=== PATIENT | female | born 1940 | race Caucasian/White ===

== ENCOUNTER 2019-12-12 16:07 | Inpatient (IN) | payer OTHER, MEDICARE ==
--- NOTE | 2019-12-12 16:22 | PDOC ---
Rapid Medical Evaluation Time Seen by Provider: 12/12/19 16:18 Medical Evaluation: Allergies Allergy/AdvReac Type Severity Reaction Status Date / Time No Known Allergies Allergy Verified 12/15/13 11:17 12/12/19 16:18 79 year old female pmhx HTN Complaining of urinary symptoms and hematuria and lower abdominal pain, no nausea vomiting fever chills CTA RRR Abdomen non ttp -CVAT Plan Labs UA UC Pt to precede to ED for further management and care
--- NOTE | 2019-12-12 17:30 | PDOC ---
History of Present Illness - General Chief Complaint: Hematuria Stated Complaint: UTI Time Seen by Provider: 12/12/19 16:18 - History of Present Illness Initial Comments: 12/12/19 17:25 79 yo female with pmh of HTN presents to ED with hematuria for past three days. Pt explains she has had similar sxs last month where she had sharp RUQ pain with associated hematuria the lasted about a day. Pt explains she called her PCP Dr. Gallagher who scheduled an appt with her on November 30 where she ordered a lab and and urine for her which was done on December 08. The next day she started experiencing severe bleeding and burning with urination with associated sharp RUQ pain. Pt explains that when she urinates there is heavy blood in the b eginning and then urine towards the end is dark and sxs have been getting worse. Pt denies any fevers, chills, SOB, chest pain, urinary frequency, current abdominal pain, change in bowel movements or any LOC. Pt does have an associated sxs of generalized weakness. PMH: HTN Med: Aspirin, Valsartan, Omeprazle, carvedilol PSx: denies Allergies: Denies Social: denies smoking drugs or alcohol PCP: Dr. Gallagher Past History - Medical History Allergies/Adverse Reactions: Allergies Allergy/AdvReac Type Severity Reaction Status Date / Time No Known Allergies Allergy Verified 12/12/19 19:00 Home Medications: Ambulatory Orders Amlodipine Besylate [Norvasc -] 10 mg PO DAILY 12/12/19 Aspirin [ASA -] 81 mg PO DAILY 12/12/19 Ibandronate Sodium [Boniva] 150 mg PO DAILY 12/12/19 Multivit-Min/Iron/Folic/Lutein [Centrum Silver Women Tablet] 1 each PO DAILY 12/12/19 Omeprazole 40 mg PO DAILY 12/12/19 Valsartan [Diovan] 160 mg PO DAILY 12/12/19 Anemia: No Asthma: No Cancer: No Cardiac Disorders: No CVA: No COPD: No CHF: No Dementia: No Diabetes: No GI Disorders: No Disorders: No HTN: Yes Hypercholesterolemia: No Liver Disease: No Seizures: No Thyroid Disease: No - Psycho-Social/Smoking History Smoking History: Never smoked - Substance Abuse Hx (Audit-C & DAST Scrn) How often the patient has a drink containing alcohol: Never Score: In Men: 4 or > Positive; In Women: 3 or > Positive: 0 Screen Result (Pos requires Nsg. Audit-10AR): Negative Review of Systems - Review of Systems Comments:: 12/12/19 17:30 GENERAL/CONSTITUTIONAL: No fever or chills. No weakness. HEAD, EYES, EARS, NOSE AND THROAT: No change in vision. No ear pain or discharge. No sore throat. CARDIOVASCULAR: No chest pain or shortness of breath RESPIRATORY: No cough, wheezing, or hemoptysis. GASTROINTESTINAL: No nausea, vomiting, diarrhea or constipation. GENITOURINARY: Hematuria and dysuria. No urinary frequency MUSCULOSKELETAL: No joint or muscle swelling or pain. No neck or back pain. SKIN: No rash NEUROLOGIC: No headache, vertigo, loss of consciousness, or change in strength /sensation. ENDOCRINE: No increased thirst. No abnormal weight change. ALLERGIC/IMMUNOLOGIC: No hives or skin allergy. *Physical Exam - Vital Signs Last Vital Signs Temp Pulse Resp BP Pulse Ox 98.1 F 84 20 145/79 97 12/12/19 16:18 12/12/19 16:18 12/12/19 16:18 12/12/19 16:18 12/12/19 16:18 - Physical Exam 12/12/19 17:31 GENERAL: Awake, alert, and fully oriented, in no acute distress HEAD: No signs of trauma, normocephalic, atraumatic EYES: PERRLA, EOMI, sclera anicteric, conjunctiva clear ENT: Auricles normal inspection, hearing grossly normal, nares patent, oropharynx clear without exudates. Moist mucosa NECK: Normal ROM, supple, no lymphadenopathy, JVD, or masses LUNGS: No distress, speaks full sentences, clear to auscultation bilaterally HEART: Regular rate and rhythm, normal S1 and S2, no murmurs, rubs or gallops, peripheral pulses normal and equal bilaterally. ABDOMEN: Soft, nontender, normoactive bowel sounds. No guarding, no rebound. No masses EXTREMITIES : Normal inspection, Normal range of motion, no edema. No clubbing or cyanosis. NEUROLOGICAL: Cranial nerves II through XII grossly intact. Normal speech, normal gait, no focal sensorimotor deficits SKIN: Warm, Dry, normal turgor, no rashes or lesions noted ED Treatment Course - LABORATORY CBC & Chemistry Diagram: 12/13/19 06:35 12/13/19 06:35 Medical Decision Making - Medical Decision Making 12/12/19 17:32 Ddx: - UTI - Cholelithiasis - Nephrolithisis 79 yo female presenting to ED with hematuria for past three days. Will assess for: - UTI: UA and Urine culture - Anemia: CBC - Kidney pathology: CMP -Gallbladder pathology: CMP 12/12/19 17:49 Urine looked tea color so decided to add on CPK to rule out rhabdo 12/12/19 18:01 Pt has elevated T. Bilirubin and alk phos showing possible obstruction or mass will Admit and get RUQ ultrasound possible CT scan of abd 12/13/19 08:32 At 7pm pt was signed out to night team Discharge - Discharge Information Problems reviewed: Yes Clinical Impression/Diagnosis: Total bilirubin, elevated Condition: Guarded - Admission Yes - Follow up/Referral - Patient Discharge Instructions - Post Discharge Activity
[2019-12-12 17:34] LABS: BASO % 1.6 % (0-2.0); EOS % 0.7 % (0-4.5); HEMATOCRIT 35.5 % (32.4-45.2); HEMOGLOBIN 11.7 GM/dL (10.7-15.3); LYMPH % 22.8 % (8-40); MCH 31.2 pg (25.7-33.7); MEAN CELL VOLUME 94.6 fl (80-96); MEAN PLT VOLUME 10.8 fl (7.5-11.1); MONO % 9.2 % (3.8-10.2); NEUT % 65.7 % (42.8-82.8); PLATELET COUNT 237 K/MM3 (134-434); RBC 3.75 M/mm3 (3.60-5.2); RDW 14.9 % (11.6-15.6); WHITE BLOOD COUNT 6.6 K/mm3 (4.0-10.0)
--- NOTE | 2019-12-12 17:52 | PDOC ---
Documentation entered by Nick Brenner SCRIBE, acting as scribe for Franco Pacheco MD. Franco Pacheco MD: This documentation has been prepared by the Elidia ramirez Nirvannie, SCRIBE, under my direction and personally reviewed by me in its entirety. I confirm that the documentation accurately reflects all work, treatment, procedures, and medical decision making performed by me. Attending Attestation - Resident Resident Name: Dwight Swenson - ED Attending Attestation I have performed the following: I have examined & evaluated the patient, The case was reviewed & discussed with the resident, I agree w/resident's findings & plan, Exceptions are as noted - HPI HPI: 12/12/19 17:29 The patient is a 79 year old female with a significant past medical history of HTN who presents to the ED with 3 days of persistent dysuria with associated dysuria, and generalized weakness. She describes her hematuria as occurring in the beginning of her stream primarily. She notes 2 days ago she had an episode of severe, intermittent right upper quadrant abdominal pain that self- resolved. As per patient, she experienced similar symptoms a month ago with associated concentrated "dark" urine. Pt was evaluated by her PCP Dr. Gallagher 4 days ago (11/30) at which time she was sent for urine and blood work (results pending). While in the ER she notes 2 days of dark urine, dysuria, and generalized weakness. She denies any urinary frequency, vaginal discharge, fevers, or chills. She denies any recent antibiotic usage. Allergies: NKDA Primary Care Physician: Dr. Gallagher - Physicial Exam PE: 12/12/19 18:04 See resident exam - Medical Decision Making 12/12/19 18:07 79 F with dark urine, RUQ pain. Possible biliary obstruction. Also consider sydni turia/UTI. - labs - UA, UCx Labs with elevated Tbili Will obtain RUQ sono and CT GI consult Discharge - Discharge Information Problems reviewed: Yes Clinical Impression/Diagnosis: Total bilirubin, elevated, Choledocholithiasis Abdominal pain Qualifiers: Abdominal location: right upper quadrant Qualified Code(s): R10.11 - Right upper quadrant pain Condition: Guarded - Follow up/Referral - Patient Discharge Instructions - Post Discharge Activity
[2019-12-12 17:56] LABS: ALBUMIN 3.1 g/dl (3.4-5.0); BILIRUBIN,TOTAL 5.6 mg/dL (0.2-1); BLOOD UREA NITROGEN 15.2 mg/dL (7-18); CALCIUM 9.1 mg/dL (8.5-10.1); CREATININE 0.8 mg/dL (0.55-1.3); POTASSIUM 3.6 mmol/L (3.5-5.1); TOT PROT 6.6 g/dl (6.4-8.2)
[2019-12-12 18:11] LABS: EPI CELLS 35 /uL (0-25.1); HYALINE CASTS 23 /uL (0-3.1); URINE APPEARANCE CLOUDY; URINE BILIRUBIN 3+ (NEGATIVE); URINE COLOR DK YELLOW; URINE GLUCOSE (UA) NEGATIVE (NEGATIVE); URINE KETONE TRACE (NEGATIVE); URINE LEUK ESTERASE 1+ (NEGATIVE); URINE NITRITE POSITIVE (NEGATIVE); URINE PROTEIN 2+ (NEGATIVE); URINE RBC 12 /uL (0-23.9); URINE WBC 102 /uL (0-25.8)
[2019-12-12] MEDS ORDERED: CEPHALEXIN MONOHYDRATE 500 MG CAPSULE (UD) PO ONE ×2 (18:50→21:15)
--- NOTE | 2019-12-12 19:54 | PDOC ---
*Physical Exam - Vital Signs Last Vital Signs Temp Pulse Resp BP Pulse Ox 98.1 F 84 20 145/79 97 12/12/19 16:18 12/12/19 16:18 12/12/19 16:18 12/12/19 16:18 12/12/19 16:18 ED Treatment Course - LABORATORY CBC & Chemistry Diagram: 12/15/19 18:00 12/15/19 07:41 - ADDITIONAL ORDERS Additional order review: Laboratory Results 12/12/19 12/12/19 17:30 17:20 Sodium 143 Potassium 3.6 Chloride 111 H Carbon Dioxide 25 Anion Gap 7 L BUN 15.2 Creatinine 0.8 Est GFR (CKD-EPI)AfAm 82.42 Est GFR (CKD-EPI)NonAf 71.11 Random Glucose 102 Calcium 9.1 Total Bilirubin 5.6 H AST 73 H ALT 130 H Alkaline Phosphatase 345 H Creatine Kinase 47 Total Protein 6.6 Albumin 3.1 L Beta HCG, Quant 3.2 Urine Color Dk yellow Urine Appearance Cloudy Urine pH 5.0 Ur Specific [place] 1.030 Urine Protein 2+ H Urine Glucose (UA) Negative Urine Ketones Trace H Urine Blood Trace Urine Nitrite Positive H Urine Bilirubin 3+ H Urine Urobilinogen 1.0 Ur Leukocyte Esterase 1+ H Urine WBC (Auto) 102 Urine RBC (Auto) 12 Urine Casts (Auto) 23 U Epithel Cells (Auto) 35 Urine Bacteria (Auto) 5000.00 12/12/19 17:20 RBC 3.75 MCV 94.6 MCHC 33.0 RDW 14.9 MPV 10.8 Neutrophils % 65.7 Lymphocytes % 22.8 Monocytes % 9.2 Eosinophils % 0.7 Basophils % 1.6 Medical Decision Making - Medical Decision Making 12/12/19 20:09 Sign-out received from Dr. Swenson. In short, 79yo F with dark urine, RUQ abdominal pain intermittently Elevated LFTs Bili 5.6, AST/ ALT 73/130 Hemodynamically stable +UTI, given keflex in the ED Tentative Dispo: Admit Med/Surg, patient will likely require MRCP for suspected biliary pathology 12/12/19 20:14 RUQ US with dilated CBD with choledocholithiasis, recommend MRCP Gallbladder sludge with thickened wall, trace pericholecystic fluid CTAP with same findings and fatty liver infiltrates, left adrenal nodule (CT follow-up recommended) 12/12/19 20:[address] [facility] at Midnight for MRCP Antoine Mayberry Dispo: Admit Endorsed to Hospitalist team Discharge - Discharge Information Problems reviewed: Yes Clinical Impression/Diagnosis: Total bilirubin, elevated, Choledocholithiasis Abdominal pain Qualifiers: Abdominal location: right upper quadrant Qualified Code(s): R10.11 - Right upper quadrant pain Condition: Guarded - Follow up/Referral - Patient Discharge Instructions - Post Discharge Activity
[2019-12-12] MEDS ORDERED: CEPHALEXIN MONOHYDRATE 500 MG CAPSULE (UD) ONE (20:50)
--- NOTE | 2019-12-12 21:42 | HP ---
Admitting History and Physical - Primary Care Physician PCP: Alessia Gallagher - Admission Chief Complaint: RUQ Pain, hematuria, Dysuria History of Present Illness: This is a 79 y/o female with a PMhx of HTN. Who presents to the ED with RUQ pain, hematuria and dysuria x 3 days. Patient reports having similar symptoms last month, sharp RUQ pain with associated "orange brown~ hematuria x 1 day. Patient reports calling her PCP, who scheduled an appt with her on November 30 ordering blood and urine tests for her which was done on December 08. Patient reports the next day, she started having bloody urination, burning with associated sharp RUQ pain. She reports that the RUQ pain, hematuria and dysuria has been getting progressively worse. Patient denies having fever, chills, SOB, dizziness, ESPANA, CP, palpitations, N/V/D, constipation, hematochezia. Patient den ies recent sick contacts or travel. History Source: Patient Limitations to Obtaining History: No Limitations - Past Medical History Cardiovascular: Yes: HTN - Past Surgical History Past Surgical History: Yes: None - Smoking History Smoking history: Never smoked - Alcohol/Substance Use Hx Alcohol Use: No History of Substance Use: reports: None - Social History Usual Living Arrangement: Yes: Alone ADL: Independent History of Recent Travel: No Home Medications - Allergies Allergies/Adverse Reactions: Allergies Allergy/AdvReac Type Severity Reaction Status Date / Time No Known Allergies Allergy Verified 12/12/19 19:00 - Home Medications Home Medications: Ambulatory Orders Amlodipine Besylate [Norvasc -] 10 mg PO DAILY 12/12/19 Aspirin [ASA -] 81 mg PO HS 12/12/19 Ibandronate Sodium [Boniva] 150 mg PO MONTHLY 12/12/19 Multivit-Min/Iron/Folic/Lutein [Centrum Silver Women Tablet] 1 each PO DAILY 12/12/19 Omeprazole 40 mg PO DAILY PRN 12/12/19 Valsartan [Diovan] 160 mg PO DAILY 12/12/19 Family Medical History Family Hx Coronary Artery Disease: Mother () Review of Systems - Review of Systems Constitutional: reports: Weakness Eyes: reports: No Symptoms HENT: reports: No Symptoms Neck: reports: No Symptoms Cardiovascular: reports: No Symptoms Respiratory: reports: No Symptoms Gastrointestinal: reports: Abdominal Pain Genitourinary: reports: Burning, Dysuria, Hematuria Breasts: reports: No Symptoms Reported Musculoskeletal: reports: No Symptoms Integumentary: reports: No Symptoms Neurological: reports: Weakness Endocrine: reports: No Symptoms Hematology/Lymphatic: reports: No Symptoms Psychiatric: reports: No Symptoms Pain Intensity: 4 Physical Examination Vital Signs: Vital Signs Temperature 98.1 F 12/12/19 16:18 Pulse Rate 84 12/12/19 16:18 Respiratory Rate 20 12/12/19 16:18 Blood Pressure 145/79 12/12/19 16:18 O2 Sat by Pulse Oximetry (%) 97 12/12/19 16:18 Constitutional: Yes: No Distress, Calm, Thin Eyes: Yes: Conjunctiva Clear, EOM Intact, PERRL, Sclera Icterus HENT: Yes: WNL, Atraumatic, Normocephalic Neck: Yes: WNL, Supple, Trachea Midline Cardiovascular: Yes: WNL, Regular Rate and Rhythm, S1, S2 Respiratory: Yes: WNL, Regular, CTA Bilaterally Gastrointestinal: Yes: Soft, Hyperactive Bowel Sounds, Tenderness (RUQ) ...Rectal Exam: Yes: Deferred Breast(s): Yes: WNL Musculoskeletal: Yes: WNL Extremities: Yes: WNL Edema: No Peripheral Pulses WNL: Yes Integumentary: Yes: Jaundice Neurological: Yes: WNL, Alert, Oriented, Cran Nerves II-XII Intact ...Motor Strength: WNL Psychiatric: Yes: WNL, Alert, Oriented Labs: CBC, BMP 12/12/19 17:20 12/12/19 17:20 Laboratory Results - last 24 hr 12/12/19 12/12/19 12/12/19 17:20 17:20 17:30 WBC 6.6 RBC 3.75 Hgb 11.7 Hct 35.5 MCV 94.6 MCH 31.2 MCHC 33.0 RDW 14.9 Plt Count 237 MPV 10.8 Absolute Neuts (auto) 4.3 Neutrophils % 65.7 Lymphocytes % 22.8 Monocytes % 9.2 Eosinophils % 0.7 Basophils % 1.6 Nucleated RBC % 0 Sodium 143 Potassium 3.6 Chloride 111 H Carbon Dioxide 25 Anion Gap 7 L BUN 15.2 Creatinine 0.8 Est GFR (CKD-EPI)AfAm 82.42 Est GFR (CKD-EPI)NonAf 71.11 Random Glucose 102 Calcium 9.1 Total Bilirubin 5.6 H AST 73 H ALT 130 H Alkaline Phosphatase 345 H Creatine Kinase 47 Total Protein 6.6 Albumin 3.1 L Beta HCG, Quant 3.2 Urine Color Dk yellow Urine Appearance Cloudy Urine pH 5.0 Ur Specific [place] 1.030 Urine Protein 2+ H Urine Glucose (UA) Negative Urine Ketones Trace H Urine Blood Trace Urine Nitrite Positive H Urine Bilirubin 3+ H Urine Urobilinogen 1.0 Ur Leukocyte Esterase 1+ H Urine WBC (Auto) 102 Urine RBC (Auto) 12 Urine Casts (Auto) 23 U Epithel Cells (Auto) 35 Urine Bacteria (Auto) 5000.00 Intake & Output 12/09/19 12/10/19 12/11/19 12/12/19 23:59 23:59 23:59 23:59 Weight 63.049 kg Imaging - Results Cat Scan: Report Reviewed, Image Reviewed Ultrasound: Image Reviewed EKG: Image Reviewed Problem List - Problems (1) Choledocholithiasis Assessment/Plan: CTAP- reviewed US- reviewed T Bili 5.6 Transaminitis- 73/130/345 Appreciate GI consult for ERCP- per ED resident Dr St aware Consider Surgical Consult Continue Levofloxacin, Metronidazole NPO Gentle IVF Monitor CBC, CMP in am Ofirmev- pain control Monitor vitals Code(s): K80.50 - CALCULUS OF BILE DUCT W/O CHOLANGITIS OR CHOLECYST W/O OBST (2) Abdominal pain Assessment/Plan: See above Code(s): R10.9 - UNSPECIFIED ABDOMINAL PAIN Qualifiers: Abdominal location: right upper quadrant Qualified Code(s): R10.11 - Right upper quadrant pain (3) UTI (urinary tract infection) Assessment/Plan: UA: +2 protein, trace ketones, +nitrate, +3 bilirubin, +1 leukocyte esterase, 102 WBC, 5000 bacteria Urine Culture-pending Continue Levofloxacin Monitor CBC Monitor vitals Ofirmev- pain control Code(s): N39.0 - URINARY TRACT INFECTION, SITE NOT SPECIFIED (4) Hematuria Assessment/Plan: Likely due to UTI Continue to monitor closely Monitor vitals Code(s): R31.9 - HEMATURIA, UNSPECIFIED (5) Transaminitis Assessment/Plan: Likely secondary to biliary obstruction Hepatitis Panel- am Monitor CMP GI consulted Code(s): R74.0 - NONSPEC ELEV OF LEVELS OF TRANSAMNS & LACTIC ACID DEHYDRGNSE (6) Total bilirubin, elevated Assessment/Plan: Likely secondary to biliary obstruction vs hepatitis vs malignancy CTAP- reviewed Adominal US-reviewed GI following Monitor CBC, CMP Hepatitis Panel Code(s): R17 - UNSPECIFIED JAUNDICE (7) HTN (hypertension) Assessment/Plan: stable Monitor BP Hold home meds for now Code(s): I10 - ESSENTIAL (PRIMARY) HYPERTENSION (8) Encounter for screening laboratory testing for COVID-19 virus 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 Admitted for Choledocholithiasis, Abdominal Pain, UTI, Transaminitis for further evaluation of their emergent condition. Plan: See Problem List FEN D50.45%NS@75ml/hr Replete lytes prn NPO DVT ppx OOB SCDs Heparin SQ Dispo: Requires Inpatient Care Visit type - Medication Review Med list reviewed for High Risk Meds patients 65 and older: Yes - Emergency Visit Emergency Visit: Yes ED Registration Date: 12/12/19 Care time: The patient presented to the Emergency Department on the above date and was hospitalized for further evaluation of their emergent condition. - New Patient This patient is new to me today: Yes Date on this admission: 12/12/19 - Critical Care Critical Care patient: No
[2019-12-13] MEDS: DEXTROSE 5%-0.45% SALINE 1,000 ML IV SCH ×2 (01:07→14:00)
[2019-12-13 07:17] LABS: BASO % 1.1 % (0-2.0); EOS % 2.1 % (0-4.5); HEMATOCRIT 33.4 % (32.4-45.2); LYMPH % 25.8 % (8-40); MCH 30.9 pg (25.7-33.7); MCHC 32.9 g/dl (32.0-36.0); MEAN CELL VOLUME 94.1 fl (80-96); MEAN PLT VOLUME 10.6 fl (7.5-11.1); MONO % 9.9 % (3.8-10.2); NEUT % 61.1 % (42.8-82.8); PLATELET COUNT 217 K/MM3 (134-434); RBC 3.55 M/mm3 (3.60-5.2); RDW 14.5 % (11.6-15.6); WHITE BLOOD COUNT 5.8 K/mm3 (4.0-10.0)
[2019-12-13 07:45] LABS: ALBUMIN 2.6 g/dl (3.4-5.0); BLOOD UREA NITROGEN 9.8 mg/dL (7-18); CALCIUM 8.5 mg/dL (8.5-10.1); CREATININE 0.6 mg/dL (0.55-1.3); POTASSIUM 3.8 mmol/L (3.5-5.1); TOT PROT 5.8 g/dl (6.4-8.2)
[2019-12-13 08:00] LABS: BILIRUBIN,TOTAL 3.5 mg/dL (0.2-1)
--- NOTE | 2019-12-13 09:10 | EKG ---
Test Reason : Blood Pressure : / mmHG Vent. Rate : 069 BPM Atrial Rate : 069 BPM P-R Int : 146 ms QRS Dur : 074 ms QT Int : 402 ms P-R-T Axes : 073 052 050 degrees QTc Int : 430 ms POOR DATA QUALITY, INTERPRETATION MAY BE ADVERSELY AFFECTED SINUS RHYTHM WITH PREMATURE SUPRAVENTRICULAR COMPLEXES ABNORMAL ECG NO PREVIOUS ECGS AVAILABLE Confirmed by Beatriz Martinez ([id number]) on 12/13/2019 9:09:26 AM Referred By: Confirmed By:Beatriz Martinez
--- NOTE | 2019-12-13 09:42 | CON.GI ---
Consult Consult Specialty:: GI Referred by:: Hospitalist Service Reason for Consultation:: Abdominal pain - History of Present Illness Chief Complaint: Abdominal pain History of Present Illness: 79F admitted for evaluation of abdominal pain. Patientdescribes mid/right sided abdominal pain last night, more prolonged when compared to a similar episode in October. Also noted darker urine and underwriter stool. Noted jaundiced with bilirubin 5.6, elevated Alkaline phosphatase and abdominal US that revealed mild biliary ductal dilatation and suspected choledocholithiasis. Believes that [facility] [place] [facility]. No family history of colorectal cancer or other GI malgnancy. - Past Medical History Cardio/Vascular: Yes: HTN - Past Surgical History Past Surgical History: Yes: None, Cataract Removal (left eye) Additional Surgical History: Denies - Alcohol/Substance Use Hx Alcohol Use: No History of Substance Use: reports: None - Smoking History Smoking history: Never smoked - Social History ADL: Independent Place of : Other ([place]) History of Recent Travel: No Home Medications - Allergies Allergies/Adverse Reactions: Allergies Allergy/AdvReac Type Severity Reaction Status Date / Time No Known Allergies Allergy Verified 12/12/19 19:00 - Home Medications Home Medications: Ambulatory Orders Amlodipine Besylate [Norvasc -] 10 mg PO DAILY 12/12/19 Aspirin [ASA -] 81 mg PO DAILY 12/12/19 Ibandronate Sodium [Boniva] 150 mg PO DAILY 12/12/19 Multivit-Min/Iron/Folic/Lutein [Centrum Silver Women Tablet] 1 each PO DAILY 12/12/19 Omeprazole 40 mg PO DAILY 12/12/19 Valsartan [Diovan] 160 mg PO DAILY 12/12/19 Family Medical History Other Family History: No family history of colorectal cancer or other GI malignancy Review of Systems - Review of Systems Constitutional: denies: Unintentional Wgt. Loss Cardiovascular: denies: Chest Pain Respiratory: denies: Cough Gastrointestinal: reports: Abdominal Pain, Nausea. denies: Vomiting Physical Exam-GI Vital Signs: Vital Signs Temperature 98.3 F 12/13/19 06:46 Pulse Rate 65 12/13/19 06:46 Respiratory Rate 17 12/13/19 06:46 Blood Pressure 115/63 12/13/19 06:46 O2 Sat by Pulse Oximetry (%) 97 12/13/19 06:46 Constitutional: Yes: Calm Eyes: Yes: Sclera Icterus Cardiovascular: Yes: Regular Rate and Rhythm. No: Murmur Respiratory: Yes: CTA Bilaterally Gastrointestinal Inspection: No: Distention, Scars ...Auscultate: Yes: Normoactive Bowel Sounds ...Palpate: Yes: Soft. No: Hepatomegaly, Splenomegaly, Tenderness ...Percussion: No: Tympanitic Edema: No (No LE edema) Neurological: Yes: Alert Labs: CBC, BMP 12/13/19 06:35 12/13/19 06:35 Hepatic Panel Total Bilirubin 3.5 mg/dL (0.2-1) H D 12/13/19 06:35 AST 62 U/L (15-37) H 12/13/19 06:35 ALT 114 U/L (13-61) H 12/13/19 06:35 Alkaline Phosphatase 300 U/L (45-117) H 12/13/19 06:35 Albumin 2.6 g/dl (3.4-5.0) L 12/13/19 06:35 Imaging - Results Cat Scan: Image Reviewed Ultrasound: Report Reviewed Problem List - Problems (1) Choledocholithiasis Assessment/Plan: Suspected symptomatic choledocholithiasis with Jaundice. by description, may have has an episode of biliary colic / passed stones as well in October Advise: NPO except meds IV Hydration Awaiting official reads of US and CT scan Continue Levaquin and Flagyl for now Ordered MRCP Discussed ERCP with Ms. Gil for further evaluation of biliary tract / stone extraction if necessary. Discussed potential risks of the procedure like but not limited to bleeding, perforation requiring surgery to repair, infection, sedation medication effects, pancreatitis (5-10% of the cases) all of which could be potentially life threatening. She has agreed with the procedure Held Heparin for now. Use alternate form of DVT prophylaxis, encourage ambulation. Plan for ERCP 12/13, sooner if clinical course dictates. Discussed case with biliary endoscopist Dr. Danica Mcclellan. Surgical consultation to discuss cholecystectomy once the above issues have been addressed. Awaiting COVID-19 testing results Monitor CBC/CMP. Type and screen ordered Code(s): K80.50 - CALCULUS OF BILE DUCT W/O CHOLANGITIS OR CHOLECYST W/O OBST
[2019-12-13] MEDS ORDERED: HEPARIN NA (PORCINE) 5,000 UNITS/ML 1ML VIAL SQ SCH (10:00)
[2019-12-13 10:10] VITALS: BMI 22.6
[2019-12-13 11:38] LABS: BILIRUBIN,DIRECT 2.8 mg/dL (0.0-0.2)
[2019-12-13 12:35] LABS: INR 1.07 (0.83-1.09); PROTHROMBIN TIME (PATIENT) 12.6 SEC (9.7-13.0)
--- NOTE | 2019-12-13 17:37 | PN ---
Physical Exam: SUBJECTIVE: Patient seen and examined at bedside with no acute events overnight. OBJECTIVE: Vital Signs Period Temp Pulse Resp BP Sys/White Pulse Ox Last 24 Hr 98.3 F-99.3 F 59-73 17-20 115-146/63-80 95-98 GENERAL: The patient is awake, alert, and fully oriented, in no acute distress. HEAD: Normal with no signs of trauma. LUNGS: Breath sounds equal, clear to auscultation bilaterally, no wheezes, no crackles, no accessory muscle use. HEART: Regular rate and rhythm, S1, S2 without murmur, rub or gallop. ABDOMEN: RUQ pain upon deep palpation EXTREMITIES: 2+ pulses, warm, well-perfused, no edema. SKIN: Warm, dry, normal turgor, no rashes or lesions noted Laboratory Results - last 24 hr 12/12/19 12/12/19 12/12/19 17:20 17:20 17:30 WBC 6.6 RBC 3.75 Hgb 11.7 Hct 35.5 MCV 94.6 MCH 31.2 MCHC 33.0 RDW 14.9 Plt Count 237 MPV 10.8 Absolute Neuts (auto) 4.3 Neutrophils % 65.7 Lymphocytes % 22.8 Monocytes % 9.2 Eosinophils % 0.7 Basophils % 1.6 Nucleated RBC % 0 PT with INR INR PTT (Actin FS) Sodium 143 Potassium 3.6 Chloride 111 H Carbon Dioxide 25 Anion Gap 7 L BUN 15.2 Creatinine 0.8 Est GFR (CKD-EPI)AfAm 82.42 Est GFR (CKD-EPI)NonAf 71.11 Random Glucose 102 Calcium 9.1 Iron TIBC Iron Saturation Unsaturated IBC Total Bilirubin 5.6 H Direct Bilirubin AST 73 H ALT 130 H Alkaline Phosphatase 345 H Creatine Kinase 47 Total Protein 6.6 Albumin 3.1 L Lipase 119 Beta HCG, Quant 3.2 Urine Color Dk yellow Urine Appearance Cloudy Urine pH 5.0 Ur Specific [place] 1.030 Urine Protein 2+ H Urine Glucose (UA) Negative Urine Ketones Trace H Urine Blood Trace Urine Nitrite Positive H Urine Bilirubin 3+ H Urine Urobilinogen 1.0 Ur Leukocyte Esterase 1+ H Urine WBC (Auto) 102 Urine RBC (Auto) 12 Urine Casts (Auto) 23 U Epithel Cells (Auto) 35 Urine Bacteria (Auto) 5000.00 Blood Type Antibody Screen 0712/13/19 12/13/19 06:35 06:35 11:28 WBC 5.8 RBC 3.55 L Hgb 11.0 Hct 33.4 MCV 94.1 MCH 30.9 MCHC 32.9 RDW 14.5 Plt Count 217 MPV 10.6 Absolute Neuts (auto) 3.6 Neutrophils % 61.1 Lymphocytes % 25.8 Monocytes % 9.9 Eosinophils % 2.1 D Basophils % 1.1 Nucleated RBC % 0 PT with INR INR PTT (Actin FS) Sodium 140 Potassium 3.8 Chloride 108 H Carbon Dioxide 26 Anion Gap 7 L BUN 9.8 Creatinine 0.6 Est GFR (CKD-EPI)AfAm 101.90 Est GFR (CKD-EPI)NonAf 87.92 Random Glucose 106 Calcium 8.5 Iron 169 TIBC 267 Iron Saturation 63 H Unsaturated IBC 98 L Total Bilirubin 3.5 H D Direct Bilirubin 2.8 H AST 62 H ALT 114 H Alkaline Phosphatase 300 H Creatine Kinase Total Protein 5.8 L Albumin 2.6 L Lipase Beta HCG, Quant Urine Color Urine Appearance Urine pH Ur Specific [place] Urine Protein Urine Glucose (UA) Urine Ketones Urine Blood Urine Nitrite Urine Bilirubin Urine Urobilinogen Ur Leukocyte Esterase Urine WBC (Auto) Urine RBC (Auto) Urine Casts (Auto) U Epithel Cells (Auto) Urine Bacteria (Auto) Blood Type A POSITIVE Antibody Screen Negative 12/13/19 11:28 WBC RBC Hgb Hct MCV MCH MCHC RDW Plt Count MPV Absolute Neuts (auto) Neutrophils % Lymphocytes % Monocytes % Eosinophils % Basophils % Nucleated RBC % PT with INR 12.60 INR 1.07 PTT (Actin FS) 32.0 Sodium Potassium Chloride Carbon Dioxide Anion Gap BUN Creatinine Est GFR (CKD-EPI)AfAm Est GFR (CKD-EPI)NonAf Random Glucose Calcium Iron TIBC Iron Saturation Unsaturated IBC Total Bilirubin Direct Bilirubin AST ALT Alkaline Phosphatase Creatine Kinase Total Protein Albumin Lipase Beta HCG, Quant Urine Color Urine Appearance Urine pH Ur Specific [place] Urine Protein Urine Glucose (UA) Urine Ketones Urine Blood Urine Nitrite Urine Bilirubin Urine Urobilinogen Ur Leukocyte Esterase Urine WBC (Auto) Urine RBC (Auto) Urine Casts (Auto) U Epithel Cells (Auto) Urine Bacteria (Auto) Blood Type Antibody Screen Active Medications Generic Name Dose Route Start Last Admin Trade Name Freq PRN Reason Stop Dose Admin Heparin Sodium (Porcine) 5,000 unit 12/13/19 10:00 Heparin - SQ BID ELVIS Dextrose/Sodium Chloride 1,000 mls @ 75 mls/hr 12/13/19 00:01 12/13/19 14:00 D5-1/2ns - IV 75 mls/hr ASDIR ELVIS Administration Levofloxacin 750 mg in 150 mls @ 100 mls/hr 12/13/19 22:00 Levaquin 750 Mg Premixed Ivpb - IVPB HS ELVIS Protocol Metronidazole 500 mg in 100 mls @ 100 mls/hr 12/13/19 06:00 12/13/19 17:22 Flagyl 500mg Premixed Ivpb - IVPB 100 mls/hr Q8H-IV ELVIS Administration ASSESSMENT/PLAN: Theresa is a 79F w a h/o HTN presents to the hospital with RUQ pain, orange-red hematuria with burning. The patient was worked up for acute cholecystitis and UTI. #Cholecystitis with concomittant Choledocolithiasis - MRCP to be preformed - Will monitor LFT, lyts, and ssx #UTI UA show +nitrite, trace blood, and +1 leukocyte esterase - pending cultures - Epithelial cells elevated - possible contamination ATTENDING PHYSICIAN STATEMENT I saw and evaluated the patient. I reviewed the resident's note and discussed the case with the resident. I agree with the resident's findings and plan as documented. SUBJECTIVE: OBJECTIVE: ASSESSMENT AND PLAN:
--- NOTE | 2019-12-13 17:59 | PN ---
Teaching Attending Note Name of Resident: oMy Marquez ATTENDING PHYSICIAN STATEMENT I saw and evaluated the patient. I reviewed the resident's note and discussed the case with the resident. I agree with the resident's findings and plan as documented. SUBJECTIVE: Feels okay, abdominal pain somewhat improved. No fever/chills/nausea/vomiting OBJECTIVE: Afebrile, Hemodynamically Stable. Last Vital Signs Temp Pulse Resp BP Pulse Ox 99.3 F 59 L 20 134/71 97 12/13/19 14:45 12/13/19 14:45 12/13/19 14:45 12/13/19 14:45 12/13/19 14:45 HEENT - Atraumatic, Normocephalic. Heart - S1, S2, RRR Lungs - clear to auscultation Abdomen - Soft, RUQ tenderness on deep palpation. Bowel Sounds normal. Extremities - no edema, no calf tenderness Neuro - AAO x 3. Tone/Power normal. Laboratory Results - last 24 hr 12/12/19 12/12/19 12/13/19 17:20 17:30 06:35 WBC 5.8 RBC 3.55 L Hgb 11.0 Hct 33.4 MCV 94.1 MCH 30.9 MCHC 32.9 RDW 14.5 Plt Count 217 MPV 10.6 Absolute Neuts (auto) 3.6 Neutrophils % 61.1 Lymphocytes % 25.8 Monocytes % 9.9 Eosinophils % 2.1 D Basophils % 1.1 Nucleated RBC % 0 PT with INR INR PTT (Actin FS) Sodium 143 Potassium 3.6 Chloride 111 H Carbon Dioxide 25 Anion Gap 7 L BUN 15.2 Creatinine 0.8 Est GFR (CKD-EPI)AfAm 82.42 Est GFR (CKD-EPI)NonAf 71.11 Random Glucose 102 Calcium 9.1 Iron TIBC Iron Saturation Unsaturated IBC Total Bilirubin 5.6 H Direct Bilirubin AST 73 H ALT 130 H Alkaline Phosphatase 345 H Creatine Kinase 47 Total Protein 6.6 Albumin 3.1 L Lipase 119 Beta HCG, Quant 3.2 Urine Color Dk yellow Urine Appearance Cloudy Urine pH 5.0 Ur Specific [place] 1.030 Urine Protein 2+ H Urine Glucose (UA) Negative Urine Ketones Trace H Urine Blood Trace Urine Nitrite Positive H Urine Bilirubin 3+ H Urine Urobilinogen 1.0 Ur Leukocyte Esterase 1+ H Urine WBC (Auto) 102 Urine RBC (Auto) 12 Urine Casts (Auto) 23 U Epithel Cells (Auto) 35 Urine Bacteria (Auto) 5000.00 Blood Type Antibody Screen 12/13/19 12/13/19 12/13/19 06:35 11:28 11:28 WBC RBC Hgb Hct MCV MCH MCHC RDW Plt Count MPV Absolute Neuts (auto) Neutrophils % Lymphocytes % Monocytes % Eosinophils % Basophils % Nucleated RBC % PT with INR 12.60 INR 1.07 PTT (Actin FS) 32.0 Sodium 140 Potassium 3.8 Chloride 108 H Carbon Dioxide 26 Anion Gap 7 L BUN 9.8 Creatinine 0.6 Est GFR (CKD-EPI)AfAm 101.90 Est GFR (CKD-EPI)NonAf 87.92 Random Glucose 106 Calcium 8.5 Iron 169 TIBC 267 Iron Saturation 63 H Unsaturated IBC 98 L Total Bilirubin 3.5 H D Direct Bilirubin 2.8 H AST 62 H ALT 114 H Alkaline Phosphatase 300 H Creatine Kinase Total Protein 5.8 L Albumin 2.6 L Lipase Beta HCG, Quant Urine Color Urine Appearance Urine pH Ur Specific [place] Urine Protein Urine Glucose (UA) Urine Ketones Urine Blood Urine Nitrite Urine Bilirubin Urine Urobilinogen Ur Leukocyte Esterase Urine WBC (Auto) Urine RBC (Auto) Urine Casts (Auto) U Epithel Cells (Auto) Urine Bacteria (Auto) Blood Type A POSITIVE Antibody Screen Negative Current Medications Generic Name Dose Route Start Last Admin Trade Name Freq PRN Reason Stop Dose Admin Heparin Sodium (Porcine) 5,000 unit 12/13/19 10:00 Heparin - SQ BID ELVIS Dextrose/Sodium Chloride 1,000 mls @ 75 mls/hr 12/13/19 00:01 12/13/19 14:00 D5-1/2ns - IV 75 mls/hr ASDIR ELVIS Administration Levofloxacin 750 mg in 150 mls @ 100 mls/hr 12/13/19 22:00 Levaquin 750 Mg Premixed Ivpb - IVPB HS ELVIS Protocol Metronidazole 500 mg in 100 mls @ 100 mls/hr 12/13/19 06:00 12/13/19 17:22 Flagyl 500mg Premixed Ivpb - IVPB 100 mls/hr Q8H-IV ELVIS Administration Home Medications Medication Instructions Recorded Amlodipine Besylate [Norvasc -] 10 mg PO DAILY 12/12/19 Aspirin [ASA -] 81 mg PO HS 12/12/19 Ibandronate Sodium [Boniva] 150 mg PO MONTHLY 12/12/19 Multivit-Min/Iron/Folic/Lutein 1 each PO DAILY 12/12/19 [Centrum Silver Women Tablet] Omeprazole 40 mg PO DAILY PRN 12/12/19 Valsartan [Diovan] 160 mg PO DAILY 12/12/19 ASSESSMENT/PLAN: 79 year old female with HTN, presents with RUQ abdominal pain, hematuria, dysuria x 3 days. 1. Acute Cholecystitis with Choledocholithiasis LFTs elevated Abdominal US - thickwalled GB with pericholecystic fluid/sludge/suspected choledocholithiasis (echogenic foci CBD) CT A/P - Dilated GB with wall thickening and pericholecystic fluid; dilatation biliary tree with choledocholithiasis Afebrile - no signs of acute cholangitis. MRCP ordered - may likely need ERCP GI consulted Surgery consulted. 2. UTI - on Levofloxacin Follow up Urine Culture. 3. HTN - normally on Norvasc and Valsartan, now held due to acute illness/borderline BP. DVT Px - Lovenox GI Px - Protonix.
[2019-12-13] MEDS: PANTOPRAZOLE SODIUM 40 MG VIAL IVPUSH SCH (18:26)
[2019-12-14] MEDS: DEXTROSE 5%-0.45% SALINE 1,000 ML IV SCH (02:22)
[2019-12-14 08:29] LABS: ALBUMIN 2.6 g/dl (3.4-5.0); BILIRUBIN,TOTAL 2.3 mg/dL (0.2-1); BLOOD UREA NITROGEN 8.5 mg/dL (7-18); CALCIUM 8.6 mg/dL (8.5-10.1); CREATININE 0.7 mg/dL (0.55-1.3); MAGNESIUM 1.8 mg/dL (1.8-2.4); PHOSPHOROUS 3.3 mg/dL (2.5-4.9); POTASSIUM 3.8 mmol/L (3.5-5.1)
--- NOTE | 2019-12-14 08:40 | PN ---
Progress Note (short form) - Note Progress Note: NEUROSURGERY CONSULT DICTATED Chart reviewed Pt examined MRI Abd reviewed History obtained c/ RUQ pain and dysuria/hematura. Reports having fallen and landed on her back and scratching up elbow 3 weeks ago. Had a "lump" in LB on L 3 weeks ago. Denies F/C, back pain. PE: AF, VSS General- mild RUQ tenderness CN- intact; Motor- 5/5 B UE/LE; Sensation- intact LT; DTR- 1+ Back- non tender Abd MRI- visceral findings noted; oval/linear 1 x 2.5 cm fluid collection along posterior lateral fascial border of paraspinal muscles, no surrounding edema Probable posttraumatic L paraspinal fascial hematoma No surgical intervention indicated unless increased symptoms or signs of localized infection Observe only
[2019-12-14] MEDS: PANTOPRAZOLE SODIUM 40 MG VIAL IVPUSH SCH (09:51)
[2019-12-14 10:09] LABS: BASO % 1.4 % (0-2.0); EOS % 1.3 % (0-4.5); HEMATOCRIT 35.2 % (32.4-45.2); HEMOGLOBIN 11.6 GM/dL (10.7-15.3); MCH 31.4 pg (25.7-33.7); MEAN CELL VOLUME 95.1 fl (80-96); MEAN PLT VOLUME 11.7 fl (7.5-11.1); MONO % 9.1 % (3.8-10.2); NEUT % 66.2 % (42.8-82.8); PLATELET COUNT 237 K/MM3 (134-434); RBC 3.71 M/mm3 (3.60-5.2); RDW 14.2 % (11.6-15.6); WHITE BLOOD COUNT 6.1 K/mm3 (4.0-10.0)
--- NOTE | 2019-12-14 10:59 | PN ---
Progress Note (short form) - Note Progress Note: GENERAL SURGERY 79yo female admitted with findings on U/S mild biliary ductal dilatation and suspected choledocholithiasis. As well as elevated LFTs. GI note reviewed and appreciated. Patient going for ERCP today. Plan for Lap giovanny possible open 12/15/19 Medical optimization. NPO after midnight Covid test ordered 12/12/19 still pending <Cayden Child - Last Filed: 12/14/19 10:59> - Note Progress Note: Attending Surgeon: I personally saw and examined the patient. My examination reveals a patient with symptomatic gallbladder disease. I discussed the case with the surgical PA and agree with their findings and plan of care with any exceptions as noted. ~ Franco Reyes MD, FACS <Franco Reyes - Last Filed: 12/14/19 12:00>
[2019-12-14] MEDS ORDERED: SUCCINYLCHOLINE CHLORIDE 200 MG/10 ML SYRINGE ONE (12:27)
[2019-12-14] MEDS ORDERED: LIDOCAINE HCL/PF 2% SDV 5ML VIAL ONE (12:27)
[2019-12-14] MEDS ORDERED: PROPOFOL 20 ML ONE (12:27)
--- NOTE | 2019-12-14 14:32 | PN ---
Progress Note (short form) - Note Progress Note: GI Procedure NOte: Please see scanned ERCP report. After informed consent was obtained from Ms. Cardenas ERCP was performed. She was found to have two CBD stones. 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 Despite several attempts the stones could not be extracted through this sphincterotomy and were pushed proximally to allow for insertion of a 7FR x 7 cm double pigtail biliary stent. She can proceed with cholecystectomy and have repeat ERCP after a course of ursodiol at a tertiary care center that has ultrasonic lithotripsy available after a few months ( ideally 3-4 but to exceed 6). Please avoid anticoagulants. I discussed the case with Dr Remy and Dr Reyes.
[2019-12-14] MEDS ORDERED: LACTATED RINGERS SOLUTION 1,000 ML/1,000 ML INFUS.BAG IV SCH ×2 (14:45→20:00)
--- NOTE | 2019-12-14 15:43 | PN ---
Teaching Attending Note Name of Resident: Moy Marquez ATTENDING PHYSICIAN STATEMENT I saw and evaluated the patient. I reviewed the resident's note and discussed the case with the resident. I agree with the resident's findings and plan as documented. SUBJECTIVE: Seen and examined at bedside in the morning. Patient denies abdominal pain, has no tenderness on exam, no complaints. Results of ERCP described below. Pending lap giovanny tomorrow. OBJECTIVE: Last Vital Signs Temp Pulse Resp BP Pulse Ox 97.5 F L 58 L 18 144/74 97 12/14/19 15:23 12/14/19 15:23 12/14/19 15:23 12/14/19 15:23 12/14/19 15:23 PE: per resident note Labs/Imaging: reviewed ASSESSMENT AND PLAN: 79-year-old female history of hypertension presents with right upper quadrant pain, hematuria, dysuria, found to have acute cholecystitis with choledocholithiasis and a UTI #Cholecystitis/choledocholithiasis Status post ERCP: Stones were unable to be removed and a pigtail biliary stent was placed GI recs appreciated: "Patient will require a repeat ERCP after a course of ursodiol at a tertiary care center that has ultrasonic lithotripsy available after a few months" Avoid anticoagulants Patient planned for cholecystectomy tomorrow N.p.o. overnight #UTI Cultures negative, no antibiotic needed
--- NOTE | 2019-12-14 17:10 | PN ---
Physical Exam: SUBJECTIVE: Patient seen and examined at bedside. The patient denies any further complaints or overnight events. OBJECTIVE: Vital Signs Period Temp Pulse Resp BP Sys/White Pulse Ox Last 24 Hr 97.5 F-98.8 F 57-65 16-28 121-154/63-85 96-98 GENERAL: The patient is awake, alert, and fully oriented, in no acute distress. HEAD: Normal with no signs of trauma. LUNGS: Breath sounds equal, clear to auscultation bilaterally, no wheezes, no crackles, no accessory muscle use. HEART: Regular rate and rhythm, S1, S2 without murmur, rub or gallop. ABDOMEN: RUQ PAIN UPON DEEP PALPATION - PATIENT WINCES EXTREMITIES: 2+ pulses, warm, well-perfused, no edema. PSYCH: Normal mood, normal affect. SKIN: Warm, dry, normal turgor, no rashes or lesions noted Laboratory Results - last 24 hr 12/13/19 12/14/19 12/14/19 07:30 06:54 06:54 WBC 6.1 RBC 3.71 Hgb 11.6 Hct 35.2 MCV 95.1 MCH 31.4 MCHC 33.0 RDW 14.2 Plt Count 237 MPV 11.7 H D Absolute Neuts (auto) 4.0 Neutrophils % 66.2 Lymphocytes % 22.0 Monocytes % 9.1 Eosinophils % 1.3 Basophils % 1.4 Nucleated RBC % 0 Sodium 141 Potassium 3.8 Chloride 108 H Carbon Dioxide 27 Anion Gap 7 L BUN 8.5 Creatinine 0.7 Est GFR (CKD-EPI)AfAm 96.86 Est GFR (CKD-EPI)NonAf 83.57 Random Glucose 129 H Calcium 8.6 Phosphorus 3.3 Magnesium 1.8 Total Bilirubin 2.3 H AST 60 H ALT 109 H Alkaline Phosphatase 297 H Total Protein 6.0 L Albumin 2.6 L Hepatitis Be Antigen Negative Active Medications Generic Name Dose Route Start Last Admin Trade Name Freq PRN Reason Stop Dose Admin Levofloxacin 750 mg in 150 mls @ 100 mls/hr 12/13/19 22:00 12/13/19 22:42 Levaquin 750 Mg Premixed Ivpb - IVPB 100 mls/hr HS ELVIS Administration Protocol Metronidazole 500 mg in 100 mls @ 100 mls/hr 12/13/19 06:00 12/14/19 09:51 Flagyl 500mg Premixed Ivpb - IVPB 100 mls/hr Q8H-IV ELVIS Administration Lactated Ringer's 1,000 ml in 1,000 mls @ 200 mls/hr 12/14/19 14:45 Lactated Ringers Solution IV 12/14/19 20:00 ASDIR ELVIS Lactated Ringer's 1,000 ml in 1,000 mls @ 175 mls/hr 12/14/19 20:00 Lactated Ringers Solution IV 12/15/19 04:00 ASDIR ELVIS Lactated Ringer's 1,000 ml in 1,000 mls @ 150 mls/hr 12/15/19 04:00 Lactated Ringers Solution IV 12/15/19 08:00 ASDIR ELVIS Lactated Ringer's 1,000 ml in 1,000 mls @ 125 mls/hr 12/15/19 08:00 Lactated Ringers Solution IV ASDIR ELVIS Pantoprazole Sodium 40 mg 12/13/19 18:00 12/14/19 09:51 Protonix Iv IVPUSH 40 mg DAILY ELVIS Administration ASSESSMENT/PLAN: Theresa is a 79F w a h/o HTN presents to the hospital with RUQ pain, orange-red hematuria with burning. The patient was worked up for acute cholecystitis and UTI. #Cholecystitis with concomittant Choledocolithiasis - Gall stone found to be 1.6cm in the common bile duct on MRCP - ERCP preformed today - unable to retrieve the stone - Pigtail stent in place to keep patent biliary tree - Will monitor LFT, lyts, and ssx - Ursodiol at outpatient clinic #UTI UA show +nitrite, trace blood, and +1 leukocyte esterase - No further work up due to negative cultures Visit type - Emergency Visit Emergency Visit: Yes ED Registration Date: 12/12/19 Care time: The patient presented to the Emergency Department on the above date and was hospitalized for further evaluation of their emergent condition. - New Patient This patient is new to me today: No - Critical Care Critical Care patient: No - Discharge Referral Referred to [facility] No - Medication Review Med list reviewed for High Risk Meds patients 65 and older: Yes ATTENDING PHYSICIAN STATEMENT I saw and evaluated the patient. I reviewed the resident's note and discussed the case with the resident. I agree with the resident's findings and plan as documented. SUBJECTIVE: OBJECTIVE: ASSESSMENT AND PLAN:
[2019-12-14 19:07] LABS: HEP B CORE AB, TOT Negative (Negative)
--- NOTE | 2019-12-14 22:41 | CONSULT ---
- Consultation REQUESTING PROVIDER: CONSULT REQUEST: We have been asked to surgically evaluate this patient for cholelithiasis and choledocholithiasis. PCP:Herson Ledbetter MD HISTORY OF PRESENT ILLNESS: MAT who is a 79y/o white female admitted for evaluation of epigastric and RUQ abdominal pain. She c/o mid/right sided abdominal pain prior to admission, more prolonged when compared to a similar episode in October. 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 She was admitted and a w/u was done.Pain has resolved sinve admission. PMHx: HTN/osteoporosis/ PSHx: cataract Home Medications Medication Instructions Recorded Amlodipine Besylate [Norvasc -] 10 mg PO DAILY 12/12/19 Aspirin [ASA -] 81 mg PO HS 12/12/19 Ibandronate Sodium [Boniva] 150 mg PO MONTHLY 12/12/19 Multivit-Min/Iron/Folic/Lutein 1 each PO DAILY 12/12/19 [Centrum Silver Women Tablet] Omeprazole 40 mg PO DAILY PRN 12/12/19 Valsartan [Diovan] 160 mg PO DAILY 12/12/19 Allergies Allergy/AdvReac Type Severity Reaction Status Date / Time No Known Allergies Allergy Verified 12/12/19 19:00 REVIEW OF SYSTEMS: CONSTITUTIONAL: Absent: fever, chills, diaphoresis, generalized weakness, malaise, loss of appetite, weight change CARDIOVASCULAR: Absent: chest pain, syncope, palpitations, irregular heart rate, lightheadedness , peripheral edema RESPIRATORY: Absent: cough, shortness of breath, dyspnea with exertion, wheezing, stridor, hemoptysis GASTROINTESTINAL: Present: abdominal pain, abdominal distension, nausea, vomiting, Absent: diarrhea, constipation, melena, hematochezia GENITOURINARY: Absent: dysuria, frequency, urgency, hesitancy, hematuria, flank pain, genital pain MUSCULOSKELETAL: Absent: myalgia, arthralgia, joint swelling, back pain, neck pain SKIN: Absent: rash, itching, pallor HEMATOLOGIC/IMMUNOLOGIC: Absent: easy bleeding, easy bruising, lymphadenopathy NEUROLOGIC: Absent: headache, focal weakness, paresthesias, dizziness, unsteady gait, seizure, mental status changes, bladder or bowel incontinence PSYCHIATRIC: Absent: anxiety, depression, suicidal or homicidal ideation, hallucinations. PHYSICAL EXAM: GENERAL: Awake, alert, and fully oriented, in no acute distress. HEAD: Normal with no signs of trauma. EYES: PERRL, sclera anicteric, conjunctiva clear. NECK: Normal ROM, supple without lymphadenopathy, JVD, or masses. ABDOMEN: Soft, nontender, not distended, normoactive bowel sounds, no guarding, no rebound, no masses. No organomegaly. No hernias. MUSCULOSKELETAL: Normal ROM at all joints. No bony deformities or tenderness. No CVA tenderness. UPPER EXTREMITIES: 2+ pulses, warm, well-perfused. No cyanosis. Cap refill <2 seconds. No peripheral edema. LOWER EXTREMITIES: 2+ pulses, warm, well-perfused. No calf tenderness. No peripheral edema. NEUROLOGICAL: Normal speech, gait not observed. PSYCH: Cooperative. Good eye contact. Appropriate mood and affect. SKIN: Warm, dry, normal turgor, no rashes or lesions noted. Vital Signs Temperature 98.4 F 12/14/19 18:17 Pulse Rate 68 12/14/19 22:31 Respiratory Rate 18 12/14/19 22:31 Blood Pressure 116/49 L 12/14/19 22:31 O2 Sat by Pulse Oximetry (%) 98 12/14/19 18:17 Lab Results WBC 6.1 K/mm3 (4.0-10.0) 12/14/19 06:54 RBC 3.71 M/mm3 (3.60-5.2) 12/14/19 06:54 Hgb 11.6 GM/dL (10.7-15.3) 12/14/19 06:54 Hct 35.2 % (32.4-45.2) 12/14/19 06:54 MCV 95.1 fl (80-96) 12/14/19 06:54 MCHC 33.0 g/dl (32.0-36.0) 12/14/19 06:54 RDW 14.2 % (11.6-15.6) 12/14/19 06:54 Plt Count 237 K/MM3 (134-434) 12/14/19 06:54 INR 1.07 (0.83-1.09) 12/13/19 11:28 Sodium 141 mmol/L (136-145) 12/14/19 06:54 Potassium 3.8 mmol/L (3.5-5.1) 12/14/19 06:54 Chloride 108 mmol/L (98-107) H 12/14/19 06:54 Carbon Dioxide 27 mmol/L (21-32) 12/14/19 06:54 Anion Gap 7 MMOL/L (8-16) L 12/14/19 06:54 BUN 8.5 mg/dL (7-18) 12/14/19 06:54 Creatinine 0.7 mg/dL (0.55-1.3) 12/14/19 06:54 Random Glucose 129 mg/dL (74-106) H 12/14/19 06:54 Calcium 8.6 mg/dL (8.5-10.1) 12/14/19 06:54 Blood Type A POSITIVE 12/13/19 11:28 Antibody Screen Negative 12/13/19 11:28 Imaging w/u to date reviewed; GI procedure Note reviewed and case d/w Dr. Mcclellan IMP: choledocholithiasis/cholelithiasis s/p ERCP and related procedures PLAN: NPO/IVF/IVABS/for lap giovanny possible open 12/15/19; r/b/t/a's d/w the patient who signed informed consent; I also discussed the case w/the patients daughter after obtaining consent.She will need outpatient f/u after surgery for advanced biliary lithtrpsy and subsequent stent removal. Franco Reyes MD FACS
[2019-12-15 00:13] LABS: BASO % 1.3 % (0-2.0); EOS % 0.5 % (0-4.5); HEMATOCRIT 34.2 % (32.4-45.2); HEMOGLOBIN 11.1 GM/dL (10.7-15.3); MCH 31.2 pg (25.7-33.7); MCHC 32.5 g/dl (32.0-36.0); MEAN PLT VOLUME 11.5 fl (7.5-11.1); MONO % 9.4 % (3.8-10.2); NEUT % 67.8 % (42.8-82.8); PLATELET COUNT 303 K/MM3 (134-434); RBC 3.56 M/mm3 (3.60-5.2); RDW 14.3 % (11.6-15.6); WHITE BLOOD COUNT 11.2 K/mm3 (4.0-10.0)
[2019-12-15] MEDS ORDERED: LACTATED RINGERS SOLUTION 1,000 ML/1,000 ML INFUS.BAG IV SCH (04:00)
--- NOTE | 2019-12-15 06:06 | PN ---
Progress Note (short form) - Note Progress Note: Resident night team was paged by RN at approximately 9:35PM, stating patient was bleeding DE and feeling dizzy. Team responded and arrived at bedside. As per chart review, patient underwent ERCP with sphincterotomy and unsuccessful stone removal with insertion of a 7FR x 7 cm double pigtail biliary stent around approximately 1:30 PM today. As per the patient, she returned from the OR around 2PM and had been feeling well until approximately 30 minutes prior to the encounter when she was defecating and suddenly became dizzy. She alerted the RN, who noticed the toilet bowl was filled with blood, approximately 100cc. Subjective: Pt seated on the edge of her bed, seated on a bedpan which contained dark red blood, approximately 200cc, appeared pale and in distress and complaining of dizziness. Objective - Vitals: 78/48 with HR 74, after intervention 112/48 - AOx3 - Lungs clear BL - Heart RRR - Extremities without any edema A&P: - Pt placed in Trendelenberg position, reported almost immediate improvement in symptoms. - N/S 500cc bolus administered (CXR from 12/12 shows no congestion, no clinical signs of fluid overload). - CBC stat ordered with H/H 11.1/34.2 compared to Hg of 11.6 earlier today. - Of note, as per laboratory staff, the CBC in the chart from [facility] has an incorrect time stamp of 12/13 00:01. This should be 12/14 00:01. Laboratory staff stated that they will correct this issue. - After approximately 10 minutes, no active bleeding was noticed, patient's BP stabilized with systolic readings 110, 112, and 116 over the next several hours, and patient reported resolution of dizziness. - Morning CBC already ordered, will recommend day team to F/U to monitor drop in H/H.
--- NOTE | 2019-12-15 07:40 | PN.GI ---
GI Progress Note - Objective Vital Signs: Vital Signs Temperature 98.6 F 12/15/19 04:00 Pulse Rate 74 12/15/19 04:00 Respiratory Rate 20 12/15/19 04:00 Blood Pressure 141/74 12/15/19 04:00 O2 Sat by Pulse Oximetry (%) 96 12/14/19 21:00 Labs: CBC, BMP 12/14/19 06:54 12/14/19 06:54 INR, PTT INR 1.07 (0.83-1.09) 12/13/19 11:28
[2019-12-15] MEDS ORDERED: LIDOCAINE HCL/PF 2% SDV 5ML VIAL ONE (08:05)
[2019-12-15] MEDS ORDERED: PROPOFOL 20 ML ONE (08:06)
[2019-12-15] MEDS ORDERED: MIDAZOLAM HCL 2 MG/2 ML SINGLE DOSE VIAL ONE (08:15)
[2019-12-15 08:16] LABS: BASO % 0.5 % (0-2.0); EOS % 0.6 % (0-4.5); HEMATOCRIT 29.4 % (32.4-45.2); HEMOGLOBIN 9.7 GM/dL (10.7-15.3); LYMPH % 24.1 % (8-40); MCH 31.1 pg (25.7-33.7); MEAN CELL VOLUME 94.3 fl (80-96); MEAN PLT VOLUME 10.1 fl (7.5-11.1); MONO % 8.9 % (3.8-10.2); NEUT % 65.9 % (42.8-82.8); PLATELET COUNT 223 K/MM3 (134-434); RBC 3.11 M/mm3 (3.60-5.2); RDW 14.2 % (11.6-15.6); WHITE BLOOD COUNT 8.5 K/mm3 (4.0-10.0)
--- NOTE | 2019-12-15 08:37 | PN ---
Progress Note (short form) - Note Progress Note: NEUROSURGERY Chart reviewed Pt examined MRI Abd reviewed History obtained c/ RUQ pain and dysuria/hematura. Reports having fallen and landed on her back and scratching up elbow 3 weeks ago. Had a "lump" in LB on L 3 weeks ago. Denies F/C, back pain. PE: AF, VSS General- mild RUQ tenderness CN- intact; Motor- 5/5 B UE/LE; Sensation- intact LT; DTR- 1+ Back- non tender Abd MRI- visceral findings noted; oval/linear 1 x 3.0 cm fluid collection along posterior lateral fascial border of paraspinal muscles, no surrounding edema Probable posttraumatic L paraspinal fascial hematoma No surgical intervention indicated unless increased symptoms or signs of localized infection Observe only for now
[2019-12-15 08:42] LABS: ALBUMIN 2.4 g/dl (3.4-5.0); BILIRUBIN,DIRECT 1.4 mg/dL (0.0-0.2); BILIRUBIN,TOTAL 1.7 mg/dL (0.2-1); BLOOD UREA NITROGEN 19.7 mg/dL (7-18); CALCIUM 8.3 mg/dL (8.5-10.1); CREATININE 0.6 mg/dL (0.55-1.3); MAGNESIUM 1.6 mg/dL (1.8-2.4); PHOSPHOROUS 3.5 mg/dL (2.5-4.9); POTASSIUM 3.5 mmol/L (3.5-5.1); TOT PROT 5.2 g/dl (6.4-8.2)
--- NOTE | 2019-12-15 08:47 | PN ---
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 - Despite several attempts the stones could not be extracted through this sphincterotomy and were pushed proximally to allow for insertion of a 7FR x 7 cm double pigtail biliary stent ABD MRI: oval/linear 1 x 3.0 cm fluid collection along posterior lateral fascial border of paraspinal muscles, no surrounding edema. Probable post-traumatic L paraspinal fascial hematoma This morning, patient's RN informs me that patient had a large BM (dark tarry stool) last night (never happened before). UGI bleed associated with recent procedure? Patient c/o mild dizziness. Patient ambulated to bathroom this morning with RN assist. I observed dark/tarry stool on her bed. Also asked to view patient's stool intoilet and confirmed dark tarry stool. Denies n/v/f/c, CP, palpitations, SOB or ALVAREZ. Denies abd pain. Last Vital Signs Temp Pulse Resp BP Pulse Ox 98.6 F 74 20 141/74 96 12/15/19 04:00 12/15/19 04:00 12/15/19 04:00 12/15/19 04:00 12/14/19 21:00 CBC, BMP 12/15/19 07:41 12/15/19 07:41 Gen: nad ABD: soft. mild ruq ttp LE: all compartments soft. nt. neg edema/swelling. SCDs bilat A/P: 79 yo female day 1 s/p ERCP -- unable to extract cbd stones (x2). Periampullary diverticulum which limited the size of the sphincterotomy. 7FR x 7 cm double pigtail biliary stent deployed. Patient was scheduled for lap giovanny today but given the new onset of GI bleed. Case canceled and Dr. Mcclellan notified. Patient is hemodynamically stable. Surgery deferred until GI bleed rectified. 1. GI f/u 2. Trend h/h 3. Hold AC 4. Medical optimization <Cayden Child - Last Filed: 12/15/19 08:54> - Note Progress Note: Attending Surgeon: I personally saw and examined the patient. My examination reveals a patient with bilary tract disease. I discussed the case with the surgical PA and agree with their findings and plan of care with any exceptions as noted. Possible GI bleed from ? sphincterotomy vs. other; surgey cancelled for today.~ Franco Reyes MD, FACS <Franco Reyes - Last Filed: 12/15/19 09:49> Problem List - Problems (1) GI bleed Code(s): K92.2 - GASTROINTESTINAL HEMORRHAGE, UNSPECIFIED (2) Abdominal pain Code(s): R10.9 - UNSPECIFIED ABDOMINAL PAIN Qualifiers: Abdominal location: right upper quadrant Qualified Code(s): R10.11 - Right upper quadrant pain (3) Choledocholithiasis Code(s): K80.50 - CALCULUS OF BILE DUCT W/O CHOLANGITIS OR CHOLECYST W/O OBST (4) HTN (hypertension) Code(s): I10 - ESSENTIAL (PRIMARY) HYPERTENSION (5) Transaminitis Code(s): R74.0 - NONSPEC ELEV OF LEVELS OF TRANSAMNS & LACTIC ACID DEHYDRGNSE <Cayden Child - Last Filed: 12/15/19 08:54>
[2019-12-15] MEDS: PANTOPRAZOLE SODIUM 40 MG VIAL IVPUSH SCH (09:48)
[2019-12-15] MEDS: LACTATED RINGERS SOLUTION 1,000 ML/1,000 ML INFUS.BAG IV SCH ×2 (09:48→11:51)
--- NOTE | 2019-12-15 11:16 | PN.GI ---
GI Progress Note Subjective: GI Procedure Note: Please see scanned endoscopy report. There is no active bleeding. The melena reflected the bleeding that occurred during the procedure. I informed Leeanna and her daughter Linda to whom I also gave the number for Dr Moses José. I discussed the case with Dr Reyes who will decide when to do her marco joseph. - Objective Vital Signs: Vital Signs Temperature 97.8 F 12/15/19 10:37 Pulse Rate 69 12/15/19 10:52 Respiratory Rate 19 12/15/19 10:52 Blood Pressure 146/68 12/15/19 10:52 O2 Sat by Pulse Oximetry (%) 97 12/15/19 10:52 Constitutional: Anxious ...Auscultate: Yes: Normoactive Bowel Sounds ...Palpate: Yes: Soft, Other (nontender) Labs: CBC, BMP 12/15/19 07:41 12/15/19 07:41 INR, PTT INR 1.07 (0.83-1.09) 12/13/19 11:28 Assessment/Plan IMpression: - Resolved sphincterotomy bleed. Can proceed with cholecystectomy. - Day 1 s/p CBD stenting for large CBD stones Plan: -- Cholecystectomy when DR Reyes decides upon -- Actigal -- ERCP with Dr. José for ultrasonic lithotripsy to remove large stones and residual stent Problem List - Problems (1) Bleeding from sphincterotomy site Code(s): K91.841 - POSTPROC HEMOR OF A DGSTV SYS ORG FOLLOWING OTHER PROCEDURE (2) Abdominal pain Code(s): R10.9 - UNSPECIFIED ABDOMINAL PAIN Qualifiers: Abdominal location: right upper quadrant Qualified Code(s): R10.11 - Right upper quadrant pain (3) Choledocholithiasis Code(s): K80.50 - CALCULUS OF BILE DUCT W/O CHOLANGITIS OR CHOLECYST W/O OBST
--- NOTE | 2019-12-15 13:09 | PN ---
Physical Exam: SUBJECTIVE: Patient seen and examined at bedside. Patient is not in any acute distress but is nervous about her bloody bowl movements. Patient reported having two episodes of bloody stools last night and one bowel movement 30 min prior with a non-formed black tarry stool. Patient denied more than 1 bowel movement for today. Patient denied any abdominal pain nausea vomiting SOB or chest pain. UPDATE: Dr. Louis was unable to appreciate active bleeding on EGD. Patient will proceed with cholecystectomy tomorrow, also allowed her to have a diet for today and NPO after midnight. Dr. Reyes and Nik TO, on following and board w surgery tomorrow. OBJECTIVE: Vital Signs Period Temp Pulse Resp BP Sys/White Pulse Ox Last 24 Hr 97.5 F-98.6 F 57-76 14-28 116-153/49-76 95-99 GENERAL: The patient is awake, alert, and fully oriented, in no acute distress. LUNGS: Breath sounds equal, clear to auscultation bilaterally, no wheezes, no crackles, no accessory muscle use. HEART: Regular rate and rhythm, S1, S2 without murmur, rub or gallop. ABDOMEN: Soft, nondistended, normoactive bowel sounds, positive for mild pain on deep palpation to right upper quadrant EXTREMITIES: 2+ pulses, warm, well-perfused, no edema. Laboratory Results - last 24 hr 12/12/19 12/13/19 12/14/19 18:05 07:30 06:54 WBC 6.1 RBC 3.71 Hgb 11.6 Hct 35.2 MCV 95.1 MCH 31.4 MCHC 33.0 RDW 14.2 Plt Count 237 MPV 11.7 H D Absolute Neuts (auto) 4.0 Neutrophils % 66.2 Lymphocytes % 22.0 Monocytes % 9.1 Eosinophils % 1.3 Basophils % 1.4 Nucleated RBC % 0 Sodium Potassium Chloride Carbon Dioxide Anion Gap BUN Creatinine Est GFR (CKD-EPI)AfAm Est GFR (CKD-EPI)NonAf Random Glucose Calcium Phosphorus Magnesium Total Bilirubin Direct Bilirubin AST ALT Alkaline Phosphatase C-Reactive Protein Total Protein Albumin Total Amylase Lipase COVID-19 (ISAAK) Not detected Hep A IgM Ab Confirm Negative Hepatitis A Ab Total Positive H Hep Bs Antigen Negative Hep Bs Antibody Non reactive Hep B Core Total Ab Negative Hep B Core IgM Ab Negative Hepatitis Be Antibody Negative Hepatitis Be Antigen Negative 12/14/19 12/15/19 12/15/19 21:54 07:41 07:41 WBC 11.2 H 8.5 RBC 3.56 L 3.11 L Hgb 11.1 9.7 L Hct 34.2 29.4 L MCV 96.0 94.3 MCH 31.2 31.1 MCHC 32.5 33.0 RDW 14.3 14.2 Plt Count 303 D 223 D MPV 11.5 H 10.1 D Absolute Neuts (auto) 7.6 5.6 Neutrophils % 67.8 65.9 Lymphocytes % 21.0 24.1 Monocytes % 9.4 8.9 Eosinophils % 0.5 0.6 Basophils % 1.3 0.5 Nucleated RBC % 0 0 Sodium 144 Potassium 3.5 Chloride 111 H Carbon Dioxide 24 Anion Gap 8 BUN 19.7 H Creatinine 0.6 Est GFR (CKD-EPI)AfAm 101.90 Est GFR (CKD-EPI)NonAf 87.92 Random Glucose 113 H Calcium 8.3 L Phosphorus 3.5 Magnesium 1.6 L Total Bilirubin 1.7 H Direct Bilirubin 1.4 H AST 48 H ALT 88 H Alkaline Phosphatase 223 H C-Reactive Protein 0.5 H Total Protein 5.2 L Albumin 2.4 L Total Amylase 129 H Lipase 672 H COVID-19 (ISAAK) Hep A IgM Ab Confirm Hepatitis A Ab Total Hep Bs Antigen Hep Bs Antibody Hep B Core Total Ab Hep B Core IgM Ab Hepatitis Be Antibody Hepatitis Be Antigen Active Medications Generic Name Dose Route Start Last Admin Trade Name Freq PRN Reason Stop Dose Admin Levofloxacin 750 mg in 150 mls @ 100 mls/hr 12/13/19 22:00 12/14/19 21:18 Levaquin 750 Mg Premixed Ivpb - IVPB 100 mls/hr HS ELVIS Administration Protocol Metronidazole 500 mg in 100 mls @ 100 mls/hr 12/13/19 06:00 12/15/19 11:50 Flagyl 500mg Premixed Ivpb - IVPB 100 mls/hr Q8H-IV ELVIS Administration Lactated Ringer's 1,000 ml in 1,000 mls @ 125 mls/hr 12/15/19 08:00 12/15/19 11:51 Lactated Ringers Solution IV 125 mls/hr ASDIR ELVIS Administration Pantoprazole Sodium 40 mg 12/13/19 18:00 12/15/19 09:48 Protonix Iv IVPUSH 40 mg DAILY ELVIS Administration Ursodiol 300 mg 12/15/19 22:00 Actigal - PO BID ELVIS ASSESSMENT/PLAN: Theresa is a 79F w a h/o HTN presents to the hospital with RUQ pain, orange-red hematuria with burning. The patient was worked up for acute cholecystitis and UTI. #Cholecystitis with concomittant Choledocolithiasis - ERCP preformed yesterday - unable to retrieve the stone - Pigtail stent in place to keep patent biliary tree - Melena - Monitoring H&H - EGD shows no signs of upper GI bleed. - cleared for cholecystectomy tomorrow - Ursodiol at outpatient clinic #UTI UA show +nitrite, trace blood, and +1 leukocyte esterase - No further work up due to negative cultures #FEN - placed on regular diet - NPO after midnight Visit type - Emergency Visit Emergency Visit: Yes ED Registration Date: 12/12/19 Care time: The patient presented to the Emergency Department on the above date and was hospitalized for further evaluation of their emergent condition. - New Patient This patient is new to me today: No - Critical Care Critical Care patient: No - Discharge Referral Referred to [facility] No - Medication Review Med list reviewed for High Risk Meds patients 65 and older: Yes ATTENDING PHYSICIAN STATEMENT I saw and evaluated the patient. I reviewed the resident's note and discussed the case with the resident. I agree with the resident's findings and plan as documented. SUBJECTIVE: OBJECTIVE: ASSESSMENT AND PLAN:
--- NOTE | 2019-12-15 14:03 | PN ---
Teaching Attending Note Name of Resident: Moy Marquez ATTENDING PHYSICIAN STATEMENT I saw and evaluated the patient. I reviewed the resident's note and discussed the case with the resident. I agree with the resident's findings and plan as documented. SUBJECTIVE: Seen and examined at bedside. Patient noted to have overnight GI bleed history noted. Patient reports some dizziness when ambulating but denies abdominal pain. Hemoglobin decreased from 11.6 postprocedure to 9.7 this morning. Scheduled lap cholecystectomy has been deferred until GI bleed resolves. OBJECTIVE: Last Vital Signs Temp Pulse Resp BP Pulse Ox 98.6 F 71 20 141/72 97 12/15/19 11:40 12/15/19 11:40 12/15/19 11:40 12/15/19 11:40 12/15/19 11:40 PE: per resident note Labs/Imaging: reviewed ASSESSMENT AND PLAN: 79-year-old female history of hypertension presents with right upper quadrant pain, hematuria, dysuria, found to have acute cholecystitis with choledocholithiasis and a UTI #Cholecystitis/choledocholithiasis Status post ERCP: Stones were unable to be removed and a pigtail biliary stent was placed GI recs appreciated: "Patient will require a repeat ERCP after a course of ursodiol at a tertiary care center that has ultrasonic lithotripsy available after a few months" Avoid anticoagulants Patient planned for cholecystectomy pending resolution of GIB N.p.o. overnight #GIB Likely secondary to ERCP. Patient is currently hemodynamically stable. Trend CBC every 12 Holding lap cholecystectomy for now GI on board: Appreciate recommendations Hold anticoagulation #UTI Cultures negative, no antibiotic needed
--- NOTE | 2019-12-15 16:09 | SPA.PREOP ---
- PRE-OP NOTE Dx: acute cholecystitis, choledocholithasis (s/p ERCP 12/14/19 with findings of 2 CBD stones unable to remove, 7Fr stent deployed) Planned Procedure: Laparoscopic cholecystectomy possible open Surgeon: Dr. Franco Reyes Last Vital Signs Temp Pulse Resp BP Pulse Ox 97.5 F L 72 20 147/73 98 12/15/19 14:49 12/15/19 14:49 12/15/19 14:49 12/15/19 14:49 12/15/19 14:49 Lab Results WBC 8.5 K/mm3 (4.0-10.0) 12/15/19 07:41 RBC 3.11 M/mm3 (3.60-5.2) L 12/15/19 07:41 Hgb 9.7 GM/dL (10.7-15.3) L 12/15/19 07:41 Hct 29.4 % (32.4-45.2) L 12/15/19 07:41 MCV 94.3 fl (80-96) 12/15/19 07:41 MCHC 33.0 g/dl (32.0-36.0) 12/15/19 07:41 RDW 14.2 % (11.6-15.6) 12/15/19 07:41 Plt Count 223 K/MM3 (134-434) D 12/15/19 07:41 INR 1.07 (0.83-1.09) 12/13/19 11:28 Sodium 144 mmol/L (136-145) 12/15/19 07:41 Potassium 3.5 mmol/L (3.5-5.1) 12/15/19 07:41 Chloride 111 mmol/L (98-107) H 12/15/19 07:41 Carbon Dioxide 24 mmol/L (21-32) 12/15/19 07:41 Anion Gap 8 MMOL/L (8-16) 12/15/19 07:41 BUN 19.7 mg/dL (7-18) H 12/15/19 07:41 Creatinine 0.6 mg/dL (0.55-1.3) 12/15/19 07:41 Random Glucose 113 mg/dL (74-106) H 12/15/19 07:41 Calcium 8.3 mg/dL (8.5-10.1) L 12/15/19 07:41 Blood Type A POSITIVE 12/13/19 11:28 Antibody Screen Negative 12/13/19 11:28 - ASSESSMENT/PLAN 1. Make NPO after midnight except po meds 2. GI/DVT PPX 3. Medical optimization / clearance 4. Consent to be obtained by surgeon after risks, benefits and alternatives discussed with patient and or Health Care Proxy. <Amanda Smalls - Last Filed: 12/15/19 16:06> - PRE-OP NOTE Dx: Planned Procedure: Surgeon: Last Vital Signs Temp Pulse Resp BP Pulse Ox 98.0 F 71 20 139/64 97 12/17/19 16:00 12/17/19 16:00 12/17/19 16:00 12/17/19 16:00 12/17/19 16:00 Lab Results WBC 12.6 K/mm3 (4.0-10.0) H 12/17/19 07:20 RBC 3.01 M/mm3 (3.60-5.2) L 12/17/19 07:20 Hgb 9.2 GM/dL (10.7-15.3) L 12/17/19 07:20 Hct 28.6 % (32.4-45.2) L 12/17/19 07:20 MCV 94.7 fl (80-96) 12/17/19 07:20 MCHC 32.2 g/dl (32.0-36.0) 12/17/19 07:20 RDW 14.5 % (11.6-15.6) 12/17/19 07:20 Plt Count 220 K/MM3 (134-434) 12/17/19 07:20 INR 1.07 (0.83-1.09) 12/13/19 11:28 Sodium 141 mmol/L (136-145) 12/17/19 07:20 Potassium 3.7 mmol/L (3.5-5.1) 12/17/19 07:20 Chloride 104 mmol/L (98-107) 12/17/19 07:20 Carbon Dioxide 31 mmol/L (21-32) 12/17/19 07:20 Anion Gap 7 MMOL/L (8-16) L 12/17/19 07:20 BUN 8.5 mg/dL (7-18) 12/17/19 07:20 Creatinine 0.7 mg/dL (0.55-1.3) 12/17/19 07:20 Random Glucose 114 mg/dL (74-106) H 12/17/19 07:20 Calcium 8.7 mg/dL (8.5-10.1) 12/17/19 07:20 Blood Type A POSITIVE 12/16/19 13:16 Antibody Screen Negative 12/16/19 13:16 - ASSESSMENT/PLAN 1. Make NPO after midnight except po meds 2. GI/DVT PPX 3. Medical optimization / clearance 4. Consent to be obtained by surgeon after risks, benefits and alternatives discussed with patient and or Health Care Proxy. <Franco Reyes - Last Filed: 12/20/19 09:12> Problem List - Problems (1) Cholecystitis Code(s): K81.9 - CHOLECYSTITIS, UNSPECIFIED (2) Choledocholithiasis Code(s): K80.50 - CALCULUS OF BILE DUCT W/O CHOLANGITIS OR CHOLECYST W/O OBST <Amanda Smalls - Last Filed: 12/15/19 16:06> Visit type - Case Type Case Type: ED Admission - Emergency Emergency Visit: Yes ED Registration Date: 12/12/19 Care time: The patient presented to the Emergency Department on the above date and was hospitalized for further evaluation of their emergent condition. - New patient This patient is new to me today: Yes Date on this admission: 12/15/19 <Amanda Smalls - Last Filed: 12/15/19 16:06>
[2019-12-15 18:51] LABS: HEMATOCRIT 29.9 % (32.4-45.2); MCH 31.8 pg (25.7-33.7); MCHC 33.5 g/dl (32.0-36.0); MEAN CELL VOLUME 95.1 fl (80-96); MEAN PLT VOLUME 10.8 fl (7.5-11.1); PLATELET COUNT 248 K/MM3 (134-434); RBC 3.14 M/mm3 (3.60-5.2); RDW 14.3 % (11.6-15.6); WHITE BLOOD COUNT 9.2 K/mm3 (4.0-10.0)
[2019-12-15] MEDS: URSODIOL 300 MG CAPSULE PO SCH (22:12)
[2019-12-16 02:07] LABS: FIBROSIS SCORE. 0.84 (0.00-0.21); HCV ALPHA 2 MACRO CHART 176 mg/dL (110-276); NECRO.INFLAM ACT.SCORE 0.75 (0.00-0.17); NECROINFLAM. ACTIVITY GRADE A3-Severe activity (.)
[2019-12-16] MEDS ORDERED: BUPIVACAINE HCL 0.5% 250 MG/50 ML VIAL IJ ONE ×2 (07:11)
[2019-12-16] MEDS ORDERED: LIDOCAINE HCL/PF 2% SDV 5ML VIAL ONE (07:35)
[2019-12-16] MEDS ORDERED: fentaNYL CITRATE 250 MCG/5 ML VIAL ONE (07:35)
[2019-12-16] MEDS ORDERED: PROPOFOL 20 ML ONE (07:35)
[2019-12-16] MEDS ORDERED: ROCURONIUM BROMIDE 100 MG/10 ML VIAL ONE (07:35)
[2019-12-16] MEDS ORDERED: ePHEDrine SULFATE 50 MG/1 ML AMPULE ONE (08:00)
--- NOTE | 2019-12-16 08:43 | CONS ---
DATE OF CONSULTATION: DATE OF DICTATION: 12/14/2019 REQUESTING PHYSICIAN: Lennox Jimenez MD FIELD MARKETING LEAD: Peter Hatch MD, Neurosurgery CHIEF COMPLAINT: Left lumbar paraspinal fluid collection. HISTORY OF PRESENT ILLNESS: Patient is a 79-year-old female who was admitted for a 3- to 4-day history of right upper quadrant pain, hematuria and dysuria. The patient had denied fever or chills. The patient also started having gross hematuria by report and with dysuria. The right upper quadrant pain has also become sharp. She denies any headache, nausea, vomiting, lower back pain, sciatica or lower extremity weakness or numbness. She had no recent injection in her back. Upon further questioning she did state that she sustained a fall about 3 weeks ago at home and banged up her elbow and her lower back. She had a bump on the left side of her back which has since resolved. PAST MEDICAL HISTORY: Significant for hypertension. CURRENT MEDICATIONS: Include Levaquin, Flagyl and Protonix. ALLERGIES: There are no known drug allergies. FAMILY HISTORY: Noncontributory. SOCIAL HISTORY: She does not smoke and only drinks alcohol socially. She lives at home. She is retired. REVIEW OF SYSTEMS: Otherwise negative for major constitutional, head and neck, cardiovascular, pulmonary, gastrointestinal, genitourinary, endocrinological, neurological or psychological problems except for the above. PHYSICAL EXAMINATION: Vital Signs: Temperature is 98.1. Blood pressure is 140/85 with pulse rate of 62. O2 saturation is 96% on room air. HEENT: Shows her to be normocephalic, atraumatic. Anicteric. Neck: Supple with no lymphadenopathy. No carotid bruit. Coronary: Demonstrated a regular rhythm. Lungs: Show clear bilaterally. Abdomen: Shows right upper quadrant tenderness to palpation. She has active bowel sounds. Extremities: There are no signs of DVT. Back: Shows no significant paraspinal muscle spasm or tenderness to palpation. There is no obvious fluid collection. Neurologic: Cranial nerve examination is intact II through XII. Motor examination shows 5/5 strength without fasciculation or atrophy. Sensory examination is intact to light touch. Deep tendon reflexes are hyporeflexic throughout. There is no pathological long tract sign. Gait is not tested for safety reasons. LABORATORY EXAMINATION: Shows the white blood cell count to be 6.1. Hemoglobin is 11.6 and platelet count is 237,000. INR is 1.07 and PTT is 32. BUN is 8.5 and creatinine 0.7. COVID serology is pending. MRI of the abdomen demonstrated moderately distended gallbladder with no clear evidence of gallstone sludge. There is mild pericholecystic fluid. The common bile duct is also dilated. There is a pancreatic cyst about 8 mm in diameter in the head of the pancreas. There is a left lumbar fascial fluid collection approximately 1 x 3 cm. There is no associated edema. IMPRESSION: 1. Probable posttraumatic subcutaneous/subfascial chronic hematoma. 2. Cholecystitis with choledocholithiasis. 3. Urinary tract infection. RECOMMENDATIONS: Patient presents with an asymptomatic left L4 region subfascial hematoma likely from a mechanical fall 3 weeks ago. The patient stated that she had a localized area of induration, but had no significant tenderness or symptoms since. She has no fevers or chills or any other signs of infection locally. Neurosurgical intervention for the above condition is not warranted. This is likely a benign collection that will resolve on its own. Should patient develop signs of infection and/or increasing mass effect locally, repeat imaging could be considered. I do not anticipate that to be the case, however. The above was discussed with the patient at bedside. All questions were answered. PETER HATCH M.D. [facility]/[id number]
[2019-12-16] MEDS ORDERED: GLYCOPYRROLATE 0.2 MG/1 ML VIAL ONE (08:53)
[2019-12-16] MEDS ORDERED: NEOSTIGMINE METHYLSULFATE 0.5 MG/ML - 10 ML MDV ONE (08:53)
[2019-12-16] MEDS ORDERED: KETOROLAC TROMETHAMINE 30 MG/1 ML VIAL ONE (09:08)
--- NOTE | 2019-12-16 09:19 | OP ---
Operative Note - Note: Operative Date: 12/16/19 Pre-Operative Diagnosis: cholelithiasis and choledocholithiasis Operation: laparoscopic cholecystectomy Findings: edematous gallbladder w/stones. Post-Operative Diagnosis: Same as Pre-op Surgeon: Franco Reyes Superintendent Pier: Cayden Child Anesthesiologist/DISH TECHNICIAN: America Gonzalez Anesthesia: General Specimens Removed: gallbladder and contents Estimated Blood Loss (mls): 20 Drains & Tubes with Location: none
[2019-12-16] MEDS ORDERED: ONDANSETRON 4 MG/2 ML VIAL IVPUSH PRN ×2 (09:22→10:11)
[2019-12-16] MEDS ORDERED: ACETAMINOPHEN 1000 MG/100 ML VIAL (NON FORMULARY) IVPB PRN ×2 (09:23→10:11)
--- NOTE | 2019-12-16 09:36 | SURG ---
Surgery Custom Framing Specialist Note Custom Framing Specialist: Cayden Child PA-C Date of Service: 12/16/19 Diagnosis: acute cholecystitis, choledocholithasis Procedure: Laprascopic cholecystectomy I was present for the entirety of the operative procedure. For further detail, please refer to operative report. Visit type - Case Type Case Type: ED Admission
[2019-12-16] MEDS: PANTOPRAZOLE SODIUM 40 MG VIAL IVPUSH SCH (10:00)
[2019-12-16] MEDS: URSODIOL 300 MG CAPSULE PO SCH ×2 (10:00→21:01)
[2019-12-16] MEDS: LACTATED RINGERS SOLUTION 1,000 ML/1,000 ML INFUS.BAG IV SCH ×3 (10:15→17:45)
--- NOTE | 2019-12-16 12:25 | PN ---
Progress Note (short form) - Note Progress Note: Attending Surgeon: Dr. Misha Root will cover for me 12/16/19-12/19/19. Franco Reyes MD FACS
[2019-12-16 14:05] LABS: BASO % 0.3 % (0-2.0); EOS % 0.1 % (0-4.5); HEMATOCRIT 27.8 % (32.4-45.2); HEMOGLOBIN 9.3 GM/dL (10.7-15.3); LYMPH % 6.4 % (8-40); MCHC 33.4 g/dl (32.0-36.0); MEAN CELL VOLUME 95.8 fl (80-96); MEAN PLT VOLUME 10.6 fl (7.5-11.1); MONO % 1.8 % (3.8-10.2); NEUT % 91.4 % (42.8-82.8); PLATELET COUNT 205 K/MM3 (134-434); RDW 14.4 % (11.6-15.6); RETICULOCYTES 1.54 % (0.5-1.5); WHITE BLOOD COUNT 9.2 K/mm3 (4.0-10.0)
[2019-12-16 14:41] LABS: ALBUMIN 2.3 g/dl (3.4-5.0); BILIRUBIN,TOTAL 1.2 mg/dL (0.2-1); BLOOD UREA NITROGEN 8.8 mg/dL (7-18); CALCIUM 7.8 mg/dL (8.5-10.1); CREATININE 0.5 mg/dL (0.55-1.3); MAGNESIUM 1.4 mg/dL (1.8-2.4); PHOSPHOROUS 2.7 mg/dL (2.5-4.9); POTASSIUM 3.7 mmol/L (3.5-5.1); TOT PROT 4.8 g/dl (6.4-8.2)
[2019-12-16 14:42] LABS: ANISOCYTOSIS 0; MACROCYTOSIS 0; PLATELET ESTIMATE NORMAL
--- NOTE | 2019-12-16 15:13 | PN ---
Teaching Attending Note Name of Resident: Moy Marquez ATTENDING PHYSICIAN STATEMENT I saw and evaluated the patient. I reviewed the resident's note and discussed the case with the resident. I agree with the resident's findings and plan as documented. SUBJECTIVE: Seen and examined at bedside. Lap giovanny without incident. Pt seen post op, is drowsy. Denies pain. OBJECTIVE: Last Vital Signs Temp Pulse Resp BP Pulse Ox 97.3 F L 72 18 117/64 100 12/16/19 14:12/16/19 14:12/16/19 14:00 12/16/19 14:12/16/19 14:00 PE: per resident note Labs/Imaging: reviewed ASSESSMENT AND PLAN: 79-year-old female history of hypertension presents with right upper quadrant pain, hematuria, dysuria, found to have acute cholecystitis with choledocholithiasis and a UTI #Cholecystitis/choledocholithiasis Status post ERCP: Stones were unable to be removed and a pigtail biliary stent was placed GI recs appreciated: "Patient will require a repeat ERCP after a course of ursodiol at a tertiary care center that has ultrasonic lithotripsy available after a few months" Avoid anticoagulants s/p lap giovanny 12/15 N.p.o. overnight #GIB Likely secondary to ERCP. Patient is currently hemodynamically stable, hgb stabalized GI on board: Appreciate recommendations Hold anticoagulation #UTI Cultures negative, no antibiotic needed
--- NOTE | 2019-12-16 20:29 | PN ---
Physical Exam: SUBJECTIVE: Patient seen and examined at bedside post op day 0. Patient endorses fatigue due to laparoscopic cholecystectomy. Patient denies SOB, Chest pain, or fever. OBJECTIVE: Vital Signs Period Temp Pulse Resp BP Sys/White Pulse Ox Last 24 Hr 97.3 F-98.5 F 68-101 18-26 117-141/61-72 93-100 GENERAL: The patient is drowsy and fully oriented, in no acute distress. HEAD: Normal with no signs of trauma. EYES: PERRL, extraocular movements intact, sclera anicteric, conjunctiva clear. No ptosis. LUNGS: Breath sounds equal, clear to auscultation bilaterally, no wheezes, no crackles, no accessory muscle use. HEART: Regular rate and rhythm, S1, S2 without murmur, rub or gallop. EXTREMITIES: 2+ pulses, warm, well-perfused, no edema. Laboratory Results - last 24 hr 12/13/19 12/16/19 12/16/19 07:30 13:16 13:16 WBC 9.2 RBC 2.90 L Hgb 9.3 L Hct 27.8 L MCV 95.8 MCH 32.0 MCHC 33.4 RDW 14.4 Plt Count 205 MPV 10.6 Absolute Neuts (auto) 8.4 H Neutrophils % 91.4 H D Neutrophils % (Manual) 96.0 H Band Neutrophils % 0.0 Lymphocytes % 6.4 L D Lymphocytes % (Manual) 4.0 L Monocytes % 1.8 L Monocytes % (Manual) 0 L Eosinophils % 0.1 D Eosinophils % (Manual) 0.0 Basophils % 0.3 Basophils % (Manual) 0.0 Myelocytes % (Man) 0 Promyelocytes % (Man) 0 Blast Cells % (Manual) 0 Nucleated RBC % 0 Metamyelocytes 0 Hypochromia 0 Platelet Estimate Normal Polychromasia 0 Poikilocytosis 0 Anisocytosis 0 Microcytosis 0 Macrocytosis 0 Retic Count 1.54 H Sodium 138 Potassium 3.7 Chloride 102 Carbon Dioxide 25 Anion Gap 11 BUN 8.8 Creatinine 0.5 L Est GFR (CKD-EPI)AfAm 108.20 Est GFR (CKD-EPI)NonAf 93.36 Random Glucose 147 H Calcium 7.8 L Phosphorus 2.7 Magnesium 1.4 L Iron 51 TIBC 222 L Iron Saturation 22 Unsaturated IBC 171 L Ferritin 128.5 Total Bilirubin 1.2 H AST 42 H ALT 72 H Alkaline Phosphatase 182 H Liver GGT 579 H Liver Total Bilirubin 3.0 H Liver Fibrosis ALT 101 H Liver Haptoglobin 202 Liver Fibrosis Score Liver Fib Fibro Score 0.84 H Necroinflammator Score 0.75 H Necroinflam Pat Score Necroinflammator Grade A3-severe activity Total Protein 4.8 L Albumin 2.3 L Apolipoprotein A-1 123 HCV Liver Fibrosis Test Liver Fibrosis Limits Ref Test Comments Blood Type Antibody Screen 12/16/19 13:16 WBC RBC Hgb Hct MCV MCH MCHC RDW Plt Count MPV Absolute Neuts (auto) Neutrophils % Neutrophils % (Manual) Band Neutrophils % Lymphocytes % Lymphocytes % (Manual) Monocytes % Monocytes % (Manual) Eosinophils % Eosinophils % (Manual) Basophils % Basophils % (Manual) Myelocytes % (Man) Promyelocytes % (Man) Blast Cells % (Manual) Nucleated RBC % Metamyelocytes Hypochromia Platelet Estimate Polychromasia Poikilocytosis Anisocytosis Microcytosis Macrocytosis Retic Count Sodium Potassium Chloride Carbon Dioxide Anion Gap BUN Creatinine Est GFR (CKD-EPI)AfAm Est GFR (CKD-EPI)NonAf Random Glucose Calcium Phosphorus Magnesium Iron TIBC Iron Saturation Unsaturated IBC Ferritin Total Bilirubin AST ALT Alkaline Phosphatase Liver GGT Liver Total Bilirubin Liver Fibrosis ALT Liver Haptoglobin Liver Fibrosis Score Liver Fib Fibro Score Necroinflammator Score Necroinflam Pat Score Necroinflammator Grade Total Protein Albumin Apolipoprotein A-1 HCV Liver Fibrosis Test Liver Fibrosis Limits Ref Test Comments Blood Type A POSITIVE Antibody Screen Negative Active Medications Generic Name Dose Route Start Last Admin Trade Name Freq PRN Reason Stop Dose Admin Acetaminophen 1,000 mg 12/16/19 10:11 Ofirmev Injection - IVPB Q6H PRN FEVER Fentanyl 50 mcg 12/16/19 10:11 Sublimaze Injection - IVPUSH 12/17/19 09:21 [id number] PRN PAIN-PACU ORDER X 4 DOSES ONLY Ondansetron HCl 4 mg 12/16/19 10:11 Zofran Injection IVPUSH 12/17/19 09:21 Q6H PRN NAUSEA AND/OR VOMITING Pantoprazole Sodium 40 mg 12/17/19 10:00 Protonix Iv IVPUSH DAILY ELVIS Ursodiol 300 mg 12/16/19 22:00 Actigal - PO BID ELVIS ASSESSMENT/PLAN: Patient is a 79F w a h/o HTN presents to the hospital with RUQ pain, orange-red hematuria with burning. The patient was worked up for acute cholecystitis and UTI. Patient is post op lap giovanny. #Cholecystitis with concomittant Choledocolithiasis - Patient is SP surgery and was able to tolerate liquids. - Dr. Mcclellan - patient to be placed on Ursodiol POD 1# to degrade gall stone in CBD until transfer to [facility] for Lithotripsy w Dr. Moses José - Pigtail stent in place to keep patent biliary tree #UTI - No further work up due to negative cultures #FEN - placed on liquid diet Visit type - Emergency Visit Emergency Visit: Yes ED Registration Date: 12/12/19 Care time: The patient presented to the Emergency Department on the above date and was hospitalized for further evaluation of their emergent condition. - New Patient This patient is new to me today: No - Critical Care Critical Care patient: No - Discharge Referral Referred to [facility] Med P.C.: No - Medication Review Med list reviewed for High Risk Meds patients 65 and older: No ATTENDING PHYSICIAN STATEMENT I saw and evaluated the patient. I reviewed the resident's note and discussed the case with the resident. I agree with the resident's findings and plan as documented. SUBJECTIVE: OBJECTIVE: ASSESSMENT AND PLAN:
--- NOTE | 2019-12-16 23:44 | OP ---
DATE OF OPERATION: 12/16/2019 PREOPERATIVE DIAGNOSIS: Cholelithiasis and choledocholithiasis. POSTOPERATIVE DIAGNOSIS: Cholelithiasis and choledocholithiasis. PROCEDURE: Laparoscopic cholecystectomy. SURGEON: Franco Reyes MD. REPORTS ANALYST: Cayden Child PA-C. ANESTHESIA: General. OPERATIVE FINDINGS: There was an edematous gallbladder with stones. The rest of the findings are unremarkable. DESCRIPTION OF PROCEDURE: The patient was placed on the operating room table in supine position. After the induction of general anesthesia, the patient's abdomen was prepped with ChloraPrep and draped in sterile fashion. Time-out was taken and then pneumoperitoneum established above the umbilicus using a Veress needle. Once 15 mm of intra-abdominal pressure was obtained, a 5-mm port was placed at the umbilicus. Additional lateral 5-mm ports and a subxiphoid 12-mm port were placed and laparoscopy carried out, and the previously noted findings were observed. The gallbladder was placed on cephalad and lateral traction, and dissection was begun at the neck of the gallbladder where the peritoneum was opened medially and laterally using blunt and sharp dissection and electrocautery. Dissection continued in the triangle of Calot where the cystic duct was identified coursing from the neck of the gallbladder distally to the common bile duct. It was dissected proximally and distally for length. Similarly, the artery was similarly identified and dissected. A critical view of safety was taken, and then the cystic duct divided proximally and distally using Endo Lalit after it was clipped twice proximally and distally with large hemoclips. The artery was similarly clipped and divided. Hemostasis was checked for and noted to be good and then the gallbladder was removed from the liver bed in a retrograde fashion using electrocautery. Prior to removal from the edge of the liver, hemostasis was again verified and then the gallbladder removed from the edge of the liver, placed in an EndoCatch, and brought out through the subxiphoid port. Pneumoperitoneum was reestablished, hemostasis verified again, and then the 5-mm lateral and subxiphoid ports were removed under laparoscopic vision without evidence of bleeding from the port sites. The umbilical port was removed and the pneumoperitoneum evacuated. All port sites were infiltrated with 0.5% Marcaine and the skin edges closed with 4-0 Biosyn in a subcuticular and continuous fashion. Steri-Strips and Band-Aid dressings were placed and the procedure terminated at this point and the patient aroused from general anesthesia and transferred to the post anesthesia care unit in stable condition awake and alert. ESTIMATED BLOOD LOSS: 20 mL. REPLACEMENTS: Crystalloid. DRAINS: None. SPECIMENS: Gallbladder and contents to pathology. I, Franco Reyes, was physically present in the operating room from the time the patient was placed on the operating room table until she was transferred to the post anesthesia care unit in [employer]. MD HUMERA Jasso/[id number] MTDD
[2019-12-17 07:47] LABS: BASO % 1.1 % (0-2.0); EOS % 0.7 % (0-4.5); HEMATOCRIT 28.6 % (32.4-45.2); HEMOGLOBIN 9.2 GM/dL (10.7-15.3); LYMPH % 22.6 % (8-40); MCH 30.5 pg (25.7-33.7); MCHC 32.2 g/dl (32.0-36.0); MEAN CELL VOLUME 94.7 fl (80-96); MEAN PLT VOLUME 10.6 fl (7.5-11.1); NEUT % 67.6 % (42.8-82.8); PLATELET COUNT 220 K/MM3 (134-434); RBC 3.01 M/mm3 (3.60-5.2); RDW 14.5 % (11.6-15.6); WHITE BLOOD COUNT 12.6 K/mm3 (4.0-10.0)
[2019-12-17 08:12] LABS: BLOOD UREA NITROGEN 8.5 mg/dL (7-18); CALCIUM 8.7 mg/dL (8.5-10.1); CREATININE 0.7 mg/dL (0.55-1.3); POTASSIUM 3.7 mmol/L (3.5-5.1)
--- NOTE | 2019-12-17 08:30 | PN ---
Progress Note (short form) - Note Progress Note: Anesthesiology Post-op S/P laparoscopic cholecystectomy under GA yesterday late afternoon. Pt. doing well, no ON events. Pain under control. VSS. No anesthesia-related issues. 79 y.o. woman with stable post-operative course. Continue management as per primary team.
[2019-12-17] MEDS: URSODIOL 300 MG CAPSULE PO SCH (09:06)
[2019-12-17] MEDS ORDERED: PANTOPRAZOLE SODIUM 40 MG VIAL IVPUSH SCH (10:00)
--- NOTE | 2019-12-17 11:10 | PN ---
Progress Note (short form) - Note Progress Note: GENERAL SURGERY POD #1 s/p Lap gricelda under ga. No acute events per RN notes since surgery. Patient is alert. C/o mild incisional tenderness. OOB and ambulating to bathroom. Voiding spontaneously. Tolerating clear diet. Denies n/v/f/c, CP, palpitations, SOB or ALVAREZ. AVSS. Afebrile Gen: a&o. nad Pulm: unlabored respirations on ra Cor: rrr ABD:all surgical ports c/d/i. no hematoma LE: all compartments soft. nt. 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 - Despite several attempts the stones could not be extracted through this sphincterotomy and were pushed proximally to allow for insertion of a 7FR x 7 cm double pigtail biliary stent Regular diet OOB and ambulate Incentive spirometer Cont care per primary medical team No further surgical input f/u w/ Dr. Reyes as outlined in dc plan Patient needs to schedule appointment with Dr. Moses José for ERCP/lithotripsy (retained cbd stones) and removal of stent Above plan discussed with Dr. Andrea who is covering for Dr. Reyes and agrees. On behalf of Dr. Reyes, thank you for the opportunity to participate in your patient's care. Code(s): Z90.49 - ACQUIRED ABSENCE OF OTHER SPECIFIED PARTS OF DIGESTIVE TRACT (2) GI bleed Code(s): K92.2 - GASTROINTESTINAL HEMORRHAGE, UNSPECIFIED (3) Abdominal pain Code(s): R10.9 - UNSPECIFIED ABDOMINAL PAIN Qualifiers: Abdominal location: right upper quadrant Qualified Code(s): R10.11 - Right upper quadrant pain (4) Choledocholithiasis Code(s): K80.50 - CALCULUS OF BILE DUCT W/O CHOLANGITIS OR CHOLECYST W/O OBST (5) HTN (hypertension) Code(s): I10 - ESSENTIAL (PRIMARY) HYPERTENSION (6) Transaminitis Code(s): R74.0 - NONSPEC ELEV OF LEVELS OF TRANSAMNS & LACTIC ACID DEHYDRGNSE
[2019-12-17] MEDS ORDERED: ACETAMINOPHEN 500 MG TABLET (FP) PO ONE (13:54)
[2019-12-17 16:03] VITALS: BP 139/64; PULSE 71; TEMP 98
--- NOTE | 2019-12-17 16:38 | DS ---
Physical Exam: SUBJECTIVE: Patient seen and examined at bedside. Patient is POD1. Patient reports mind pain at surgical site. Patient endorses flatus and tolerates diet. OBJECTIVE: Vital Signs Period Temp Pulse Resp BP Sys/White Pulse Ox Last 24 Hr 96 F-98.5 F 71-76 18-20 134-140/61-75 96-98 PHYSICAL EXAM GENERAL: The patient is awake, alert, and fully oriented, in no acute distress. HEAD: Normal with no signs of trauma. LUNGS: Breath sounds equal, clear to auscultation bilaterally, no wheezes, no crackles, no accessory muscle use. HEART: Regular rate and rhythm, S1, S2 without murmur, rub or gallop. ABDOMEN: surgical sites intact, no discharge, no erythema, normoactive bowel sounds, no guarding, no rebound, no hepatosplenomegaly, no masses. EXTREMITIES: 2+ pulses, warm, well-perfused, no edema. PSYCH: Normal mood, normal affect. SKIN: Warm, dry, normal turgor, no rashes or lesions noted. LABS Laboratory Results - last 24 hr 12/17/19 12/17/19 07:20 07:20 WBC 12.6 H RBC 3.01 L Hgb 9.2 L Hct 28.6 L MCV 94.7 MCH 30.5 MCHC 32.2 RDW 14.5 Plt Count 220 MPV 10.6 Absolute Neuts (auto) 8.5 H Neutrophils % 67.6 D Lymphocytes % 22.6 D Monocytes % 8.0 D Eosinophils % 0.7 D Basophils % 1.1 D Nucleated RBC % 0 Sodium 141 Potassium 3.7 Chloride 104 Carbon Dioxide 31 Anion Gap 7 L BUN 8.5 Creatinine 0.7 Est GFR (CKD-EPI)AfAm 96.86 Est GFR (CKD-EPI)NonAf 83.57 Random Glucose 114 H Calcium 8.7 HOSPITAL COURSE: Date of Admission:12/12/19 Ms. Gil is a 79F with a past medical history of hypertension presenting to the emergency department with a c/o right upper quadrant pain and hematuria. Ultrasound of the abdomen revealed a thickened gallbladder and dilatation bilia ry tree with choledocholithiasis. Urinalysis and urine culture was negative for UTI and acute pathology. ERCP was unsuccessful in retrieval of the gallstone and a pigtail biliary stent was placed. Successful surgical intervention with lapchole was preformed by Dr. Reyes. Dr. Mcclellan placed the patient on Ursidiol prior to to Lithotripsy at [facility] with referral for Dr. Moses José. Date of Discharge: 12/17/19 Minutes to complete discharge: 40 Discharge Summary Problems reviewed: Yes Reason For Visit: HIGH TOTAL BILIRUBIN Current Active Problems Choledocholithiasis (Chronic) HTN (hypertension) (Chronic) Condition: Stable - Instructions Diet, Activity, Other Instructions: YOUR VISIT: You were admitted to the hospital because of abdominal pain. While you were evaluated with lab work, blood work, urine analysis and urine culture, an x-ray of your chest, ultrasound of your abdomen, CAT scan and MRI of your abdomen, and an endoscopy. Imaging showed an inflamed gallbladder and a large obstructing stone stuck within your Common Bile Duct. A neonatal critical care nurse performed an Endoscopic Retrograde Cholangiopancreatography(ERCP) to evaluate and try to remove the stone. The stone was too large to be extracted. A plastic stent was placed in the common bile duct to prevent bile flow obstruction. The gallbladder was removed by Dr. Reyes. The stone within the common bile duct will have to be managed at [facility] by an advanced gastroenteroligst(eg Dr. Moses José). In the mean time your neonatal critical care nurse recommended that you receive a course of ursodiol to help promote breakdown of the bile stone. You were treated with fluids and nutrients to help you recover. You must follow up with your primary care physician one week after discharge. CARE: We advise you to maintain hydration, diet, and proper hygiene. MEDICATIONS: Please START taking 300mg of Ursodiol twice a day. Please take 50mg of Tramadol every 6 hours as needed for any pain. Please continue taking all of your medications as prescribed Please continue taking your blood pressure medications regularly as prescribed FOLLOW UP: Please follow up with your primary care physician Dr. Alessia Gallagher within 1 week. Please follow up with the neonatal critical care nurse(Dr Danica Mcclellan) within 1-2weeks to discuss when you can have the bile stents removed Please follow up with an advanced neonatal critical care nurse(Dr. Moses José) at [facility] to schedule an office visit discuss future management of the stone within your common bile duct, possibly requiring a ultrasonic lithotripsy ADDITIONAL INFORMATION: You are being discharged HOME Please return to the emergency department if you are experiencing any worsening back pain, fatigue, numbness or tingling in your legs or feet, or sudden weakness in your extremities. Dr. Reyes Discharge Instructions Dear YOSI ANDERSON, Post Operative Instructions Physical activity Resume your normal everyday activity as tolerated no heavy lifting or exercise until seen by your surgeon. You may walk unlimited amounts of and climb stairs. You may resume driving the car when you feel safe and comfortable behind the wheel. Wound care If you have a bandage, leave it on, and keep dry for 48 - 72 hours. After that time discard the outer bandage. If there are tapes on the skin under the outer bandage, leave them in place. They will peel off in the next 7 to 10 days. Do Not peel them off. You may shower 2 days after surgery. If there are tapes present on the skin, they can get wet. Diet There are no dietary restrictions. Eat healthy, high-fiber foods. Drink 6 to 8 glasses of liquid each day. This will assist in keeping your bowels are regular. Pain management You may take Tylenol or acetaminophen or Ibuprofen (for example, Motrin, Advil etc.) Any pain prescription medication ordered should be taken as prescribed for moderate to severe pain. Call Dr. Reyes for any of the following: Severe pain not relieved by medication Fever of 101 or higher Excessive bleeding or drainage on dressing Inability to urinate Call the office at [phone] for a post operative appointment in 7 - 10 days. Needs to follow up with Moses José MD, for lithotripsy of the biliary stone. Call to schedule an appointment [address] [id number] Referrals: Franco Reyes MD [Staff Physician] - 1 Week Danica Mcclellan MD [Staff Physician] - 1 Week Alessia Gallagher MD [Non Staff, Medical] - 1 Week Disposition: HOME - Home Medications Comprehensive Discharge Medication List: Ambulatory Orders Amlodipine Besylate [Norvasc -] 10 mg PO DAILY 12/12/19 Aspirin [ASA -] 81 mg PO HS 12/12/19 Ibandronate Sodium [Boniva] 150 mg PO MONTHLY 12/12/19 Multivit-Min/Iron/Folic/Lutein [Centrum Silver Women Tablet] 1 each PO DAILY 12/12/19 Omeprazole 40 mg PO DAILY PRN 12/12/19 Valsartan [Diovan] 160 mg PO DAILY 12/12/19 Tramadol HCl 50 mg PO Q6H PRN #30 tablet MDD 4 12/17/19 Ursodiol [Actigal] 300 mg PO BID #40 capsule 12/17/19 This patient is new to me today: No Emergency Visit: Yes ED Registration Date: 12/12/19 Care time: The patient presented to the Emergency Department on the above date and was hospitalized for further evaluation of their emergent condition. Critical Care patient: No - Discharge Referral Referred to [facility] Med P.C.: No ATTENDING PHYSICIAN STATEMENT I saw and evaluated the patient. I reviewed the resident's note and discussed the case with the resident. I agree with the resident's findings and plan as documented. SUBJECTIVE: OBJECTIVE: ASSESSMENT AND PLAN:
--- NOTE | 2019-12-17 17:48 | PN ---
Teaching Attending Note Name of Resident: Moy Marquez ATTENDING PHYSICIAN STATEMENT I saw and evaluated the patient. I reviewed the resident's note and discussed the case with the resident. I agree with the resident's findings and plan as documented. SUBJECTIVE: Seen and examined at bedside. Patient is tolerating meals, passing flatus, and reports pain is controlled. Cleared for discharge by surgical team. Patient is medically cleared for discharge OBJECTIVE: Last Vital Signs Temp Pulse Resp BP Pulse Ox 98.0 F 71 20 139/64 97 12/17/19 16:00 12/17/19 16:00 12/17/19 16:00 12/17/19 16:00 12/17/19 16:00 PE: per resident note Labs/Imaging: reviewed ASSESSMENT AND PLAN: 79-year-old female history of hypertension presents with right upper quadrant pain, hematuria, dysuria, found to have acute cholecystitis with choledocholithiasis. Patient underwent an ERCP, however stones were unable to be removed and a pigtail barely stent was placed. Patient then had a GI bleed thought to be secondary to complications of the ERCP which resolved. Patient will require repeat ERCP after a course of ursodiol at a tertiary care center that has ultrasonic lithotripsy available after a few months." Patient later underwent a laparoscopic cholecystectomy without complications. Patient will follow-up with GI as an outpatient for reevaluation of the stent and referral to a tertiary center.
--- NOTE | 2019-12-17 19:57 | PATH ---
Surgical Pathology Report Patient Name: YOSI ANDERSON [facility]. Rec. #: [id number] /Age/Gender: 1940 (Age: 79) / F Account: [id number] Location: EMERGENCY ROOM Taken: 12/16/2019 Received: 12/16/2019 Reported: 12/17/2019 Physicians: MD Herson Sy M.D. Specimen(s) Received GALLBLADDER Clinical History High total bilirubin Final Diagnosis GALLBLADDER, LAPAROSCOPIC CHOLECYSTECTOMY: ACUTE CHOLECYSTITIS. Electronically Signed Alessia Hargrove M.D. Gross Description Received in formalin, labeled "gallbladder," is a 9.5 x 3.6 x 3.0 cm. gallbladder with a 0.2 cm. in length portion of cystic duct attached. The outer surface is ramirez-pink and varies from smooth to shaggy. The lumen contains ramirez green, mucinous bile. There are no choleliths identified within the specimen or the container. The mucosa is ramirez and velvety. The wall of the gallbladder measures 0.1 cm. in thickness. Academic Support Coordinator sections are submitted in one cassette. /12/16/2019 saudi/12/16/2019
== END 2019-12-17 18:58 | disposition home or self-care (01) | DRG 418 ==
LOC: JER 16:07 → JERBED 18:03 → J6WEST-2 12-13 09:31
PROVIDERS: ADMIT Internal Medicine; ATTEND Internal Medicine
PROC: 0F798DZ Dilation of Common Bile Duct with Intraluminal Device, Via Natural or Artificial Opening Endoscopic (ICD-10-PCS; 2019-12-14)
PROC: 0DJ08ZZ Inspection of Upper Intestinal Tract, Via Natural or Artificial Opening Endoscopic (ICD-10-PCS; 2019-12-15)
PROC: 0FT44ZZ Resection of Gallbladder, Percutaneous Endoscopic Approach (ICD-10-PCS; principal; 2019-12-16 07:30)
DX: K80.42 Calculus of bile duct with acute cholecystitis without obstruction (principal); N39.0 Urinary tract infection, site not specified; K91.840 Postprocedural hemorrhage of a digestive system organ or structure following a digestive system procedure; K92.2 Gastrointestinal hemorrhage, unspecified; I10 Essential (primary) hypertension; R74.0 Nonspecific elevation of levels of transaminase and lactic acid dehydrogenase [LDH]; Y83.8 Other surgical procedures as the cause of abnormal reaction of the patient, or of later complication, without mention of misadventure at the time of the procedure
CPT/HCPCS: 36415; 71045-TC-FY; 74177-TC; 74181-TC; 76000-TC-FY; 76705-TC; 80048; 80053; 81003; 82150; 82172; 82248; 82550; 82728; 82977; 83010; 83540; 83550; 83690; 83735; 83883; 84100; 84460; 84702; 85025; 85027; 85044; 85610; 85730; 86140; 86704; 86706; 86707; 86708; 86709; 86850; 86900; 86901; 87086; 87340; 87350; 88304-TC; 93005; 93010; 94010; 94760; 99285-25; Q9967; U0003